=== PATIENT | female | born 1950 | race Caucasian/White ===

== ENCOUNTER 2018-08-26 09:13 | Inpatient (IN) ==
[2018-08-26] MEDS ORDERED: Morphine Inj 4 MG/ML Vial IV.PUSH ONE (09:50)
[2018-08-26] MEDS ORDERED: niCARdipine Inj 25 MG in Sodium Chlor 0.9% Inj 240 ML IV.CONT PRN (09:57)
[2018-08-26 10:11] LABS: Baso # (Auto) 0.1 th/mm3 (0.0-0.2); Baso % (Auto) 0.9 % (0.0-2.0); Eos # (Auto) 0.1 th/mm3 (0.0-0.4); Eos % (Auto) 0.9 % (0.0-4.0); Hematocrit 43.2 % (35.0-46.0); Hemoglobin 14.7 gm/dL (11.6-15.3); Lymph # (Auto) 2.7 th/mm3 (1.0-4.8); Lymph % (Auto) 26.9 % (9.0-44.0); Mean Corpuscular HGB Conc 34.1 % (32.0-36.0); Mean Corpuscular Hemoglobin 30.1 pg (27.0-34.0); Mean Corpuscular Volume 88.4 fL (80.0-100.0); Mean Platelet Volume 10.2 fL (7.0-11.0); Mono # (Auto) 0.6 th/mm3 (0.0-0.9); Mono % (Auto) 6.1 % (0.0-8.0); Neut # (Auto) 6.6 th/mm3 (1.8-7.7); Neut % (Auto) 65.2 % (16.0-70.0); Platelet Count 204 th/mm3 (150-450); Red Blood Count 4.89 mil/mm3 (4.00-5.30); Red Cell Distribution Width 14.3 % (11.6-17.2); White Blood Count 10.2 th/mm3 (4.0-11.0)
--- NOTE | 2018-08-26 10:17 | CT ---
EXAM DATE: 08/26/2018 9:53 AM EDT AGE/SEX: 68 years / Female INDICATIONS: Stroke alert, Right sided visual changes. CLINICAL DATA: This is the patient's initial encounter. Patient reports that signs and symptoms have been present for 1 day and indicates a pain score of Nonresponsive. MEDICAL/SURGICAL HISTORY: Non-responsive. Non-responsive. RADIATION DOSE: 29.39 CTDI (mGy) COMPARISON: [facility] [place], CT BRAIN W/O CONTRAST, 08/12/2016. . TECHNIQUE: CT of the head without contrast. Using automated exposure control and adjustment of the mA and/or kV according to patient size, radiation dose was kept as low as reasonably achievable to ob tain optimal diagnostic quality images. DICOM format image data is available electronically for revi ew and comparison. FINDINGS: Cerebrum: Moderate diffuse cerebral atrophy. The ventricles are normal for degree of atrophy. No derik dence of midline shift, mass lesion, hemorrhage or acute infarction. No extraaxial fluid collections are seen. Posterior Fossa: The cerebellum and brainstem are intact. The 4th ventricle is midline. The cerebe llopontine angle is unremarkable. Extracranial: The visualized portion of the orbits is intact. Skull: The calvaria is intact. No evidence of skull fracture. CONCLUSION: 1. No acute intracranial abnormality. Findings were reviewed by Dr. Humphreys with Dr. Wayne at 10:10. Electronically signed by: Maurizio Penaloza MD 08/26/2018 10:15 AM EDT
[2018-08-26 10:37] LABS: Alkaline Phosphatase 94 U/L (45-117); Total Protein 8.7 g/dL (6.4-8.2)
[2018-08-26] MEDS: Sod Chloride 0.9% Inj 1,000 ML IV.CONT SCH ×4 (10:39→23:37)
--- NOTE | 2018-08-26 10:40 | CT ---
EXAM DATE: 08/26/2018 10:03 AM EDT AGE/SEX: 68 years / Female INDICATIONS: Stroke alert, right side visual changes. CLINICAL DATA: This is the patient's initial encounter. Patient reports that signs and symptoms have been present for 1 day and indicates a pain score of Nonresponsive. MEDICAL/SURGICAL HISTORY: Non-responsive. Non-responsive. RADIATION DOSE: 25.76 CTDI (mGy) ; Combined studies COMPARISON: [facility] [place], CT HEAD W/O CONTRAST, 08/26/2018. . TECHNIQUE: Volumetric scanning was performed using a multi-row detector CT scanner during bolus infu roxana of 99 ml Visipaque 320 (iodixanol) nonionic water-soluble contrast as a cumulative dose for mul tiple exams. The data was post processed with a variety of visualization algorithms including full volume maximum intensity projection, multi-planar sliding thin slab reformation, curved planar reform ation, and surface rendering techniques. Using automated exposure control and adjustment of the mA a nd/or kV according to patient size, radiation dose was kept as low as reasonably achievable to obtain optimal diagnostic quality images. DICOM format image data is available electronically for review a nd comparison. FINDINGS: There is excellent visualization of the major intracranial arteries out to the second-order branch ve ssels. There is no evidence for aneurysm, vessel truncation or stenosis, and no evidence for vascula r malformation. Anterior communicating artery is patent. Middle and anterior cerebral arteries are pa tent. Dominant left vertebral artery. Right vertebral artery ends in PICA. Basilar artery patent. Pos terior cerebral arteries are unremarkable without significant stenosis. Posterior communicating arter ies. CONCLUSION: 1. No large vessel stenosis, thrombosis or aneurysm. 2. Normal variants as above. Electronically signed by: Gregg Rajan MD 08/26/2018 10:39 AM EDT
[2018-08-26 10:42] LABS: Alanine Aminotransferase 18 U/L (10-53); Albumin 4.6 g/dL (3.4-5.0); Anion Gap 14 meq/L (5-15); Aspartate Aminotransferase 19 U/L (15-37); Blood Urea Nitrogen 15 mg/dL (7-18); Calcium 9.1 mg/dL (8.5-10.1); Carbon Dioxide 22.8 meq/L (21.0-32.0); Chloride 106 meq/L (98-107); Glomerular Filtration Rate 66 mL/min (>89); Glucose,Random 91 mg/dL (74-106); Potassium 3.8 meq/L (3.5-5.1); Sodium 143 meq/L (136-145)
--- NOTE | 2018-08-26 10:58 | ED ---
HPI General Chief Complaint: Headache Stated Complaint: Pain Time Seen by Provider: 08/26/18 09:57 Source: patient Mode of arrival: ambulatory Limitations: no limitations History of Present Illness HPI Narrative: The patient 68 years old and arrives with temporal cephalgia. It is on the right side. She woke up with it approximately 6-1/2 hours prior to ER arrival. No jaw claudication or new rash. Pt denies that at that time she had facial asymmetry or weakness. No extremity weakness was noted upon waking. Pt reports one simlar prior episode several months prior ultimately diagnosed as TIA. No fever. Patient also reports her blood pressures typically in the 90s systolic. Blood pressure today approximately 200/100 at home and shortly after arrival to the ER. Patient also complains of right-sided chest pain with radiation to the right shoulder. She reports having undergone evaluation for chest pain in [place] earlier this year which revealed no coronary disease. Related Data Home Medications Medication Instructions Recorded Confirmed Xanax 5 mg PO BID PRN 08/26/18 08/26/18 aspirin [Aspirin Low Dose] 81 mg PO DAILY 08/26/18 08/26/18 gabapentin 400 mg PO BID 08/26/18 08/26/18 hydrocodone-acetaminophen [[place]] 1 tab PO Q4-6H PRN 08/26/18 08/26/18 omeprazole 40 mg PO DAILY 08/26/18 08/26/18 Allergies Allergy/AdvReac Type Severity Reaction Status Date / Time penicillin G Allergy Unknown UNKNOWN Verified 08/26/18 09:29 Review of Systems ROS: all other systems reviewed are negative [facility] Family History Family History Mother Family history of colon cancer Social History Social History Substance History: No History of Abuse Second Hand Smoke Exposure: No Smoking Status: Never smoker How Often Do You Have a Drink Containing Alcohol: Monthly or less Recent Travel in [facility] within the Last 8 Weeks: No Recent Out of Country Travel within the Last 8 Weeks: No Immunization History Tetanus Immunization: >5 Years Exam Narrative Exam Narrative: GENERAL: 68year-old female pleasant well-nourished well- developed no acute distress SKIN: Focused skin assessment warm/dry. HEAD: Atraumatic. Normocephalic. EYES: Pupils equal and round. No scleral icterus. No injection or drainage. ENT: No nasal bleeding or discharge. Mucous membranes pink and moist. NECK: Trachea midline. No JVD. CARDIOVASCULAR: Regular rate and rhythm. No murmur appreciated. RESPIRATORY: No accessory muscle use. Clear to auscultation. Breath sounds equal bilaterally. GASTROINTESTINAL: Abdomen soft, non-tender, nondistended. Hepatic and splenic margins not palpable. MUSCULOSKELETAL: No obvious deformities. No clubbing. No cyanosis. No edema. NEUROLOGICAL: There is right-sided facial droop. Forehead exam normal. There is a slight pronator drift on the right side. Hip flexion is slightly decreased on the right side. Sensation slightly decreased on the right face compared to the left. Speech is normal. There is no neglect. Memory mentation normal. There is no focal tenderness overlying the temporal artery. PSYCHIATRIC: Appropriate mood and affect; insight and judgment normal. Course Initial Documented Vital Signs Temperature 97.9 F 08/26/18 09:16 Pulse Rate 87 08/26/18 09:16 Respiratory Rate 17 08/26/18 09:16 Blood Pressure 226/100 H 08/26/18 09:16 Pulse Oximetry 100 08/26/18 09:16 Last Documented Vital Signs Temperature 97.9 F 08/27/18 12:00 Pulse Rate 76 08/27/18 12:00 Respiratory Rate 19 08/27/18 12:00 Blood Pressure 131/74 08/27/18 12:00 Pulse Oximetry 94 L 08/27/18 12:00 Critical Care Time Critical Care Time: Yes Total Critical Care Time: 45 Attestation: Aggregate critical care time was 45 minutes. Time to perform other separately billable procedures was not included in the critical care time. My time did not include minutes spent treating any other patients simultaneously or on activities that did not directly contribute to the patient's treatment. The services I provided to this patient were to treat and/or prevent clinically significant deterioration that could result in: Permanent disability, intracranial hemorrhage I provided critical care services requiring my management, as noted below: Chart data review, documentation time, medication orders and management, vital sign assessments/reviewing monitor data, ordering and reviewing lab tests, ordering and interpreting/reviewing x-rays and diagnostic studies, care of the patient and discussion of the patient with the admitting physicians. Medical Decision Making MDM Narrative Medical decision making narrative: At the time of my exam there is right-sided facial droop as well as weakness in the right arm and leg. This was concerning for acute stroke. Stroke alert was therefore activated. Case discussed with neurology, Dr. Wayne, who advised against TPA. Additional recommendations include workup including MR imaging CTA, aspirin, permissive hypertension and Tylenol for cephalgia. TPA not indicated given duration of symptoms. Case discussed with Dr. Sin for the hospitalist service. Patient has a urinary tract infection, and unexpected finding. Medical Screen Exam Complete: Yes Emergency Medical Condition: Yes Lab Data Lab results reviewed: Yes I reviewed the patient's lab results. Result diagrams: 08/27/18 03:58 08/27/18 03:58 Lab Results 08/26/18 08/26/18 08/26/18 Range/Units 09:54 09:54 09:54 WBC 10.2 (4.0-11.0) th/mm3 RBC 4.89 (4.00-5.30) mil/mm3 Hgb 14.7 (11.6-15.3) gm/dL POC Hgb (Calc) (11.6-15.3) g/dL Hct 43.2 (35.0-46.0) % POC Hct (35-46.0) % MCV 88.4 (80.0-100.0) fL MCH 30.1 (27.0-34.0) pg MCHC 34.1 (32.0-36.0) % RDW 14.3 (11.6-17.2) % Plt Count 204 (150-450) th/mm3 MPV 10.2 (7.0-11.0) fL Neut % (Auto) 65.2 (16.0-70.0) % Lymph % (Auto) 26.9 (9.0-44.0) % Harmon % (Auto) 6.1 (0.0-8.0) % Eos % (Auto) 0.9 (0.0-4.0) % Baso % (Auto) 0.9 (0.0-2.0) % Neut # (Auto) 6.6 (1.8-7.7) th/mm3 Lymph # (Auto) 2.7 (1.0-4.8) th/mm3 Harmon # (Auto) 0.6 (0.0-0.9) th/mm3 Eos # (Auto) 0.1 (0.0-0.4) th/mm3 Baso # (Auto) 0.1 (0.0-0.2) th/mm3 WBC Differential . Differential Comment Auto diff final ESR 12 (0-30) mm/hr PT (9.8-11.6) sec INR Ratio APTT (24.3-30.1) sec Fibrinogen (227-377) mg/dL POC Sodium (137-144) mmol/L Sodium 143 (136-145) meq/L POC Potassium (3.6-5.0) mmol/L Potassium 3.8 (3.5-5.1) meq/L POC Chloride (102-111) mmol/L Chloride 106 (98-107) meq/L Carbon Dioxide 22.8 (21.0-32.0) meq/L Anion Gap 14 (5-15) meq/L POC BUN (5-21) mg/dL BUN 15 (7-18) mg/dL Creatinine 0.85 (0.50-1.00) mg/dL POC Creatinine (0.6-1.3) mg/dL Estimated GFR 66 L (>89) mL/min POC Glucose (68-110) mg/dL Random Glucose 91 (74-106) mg/dL Calcium 9.1 (8.5-10.1) mg/dL Total Bilirubin 0.9 (0.2-1.0) mg/dL Direct Bilirubin (0.0-0.2) mg/dL Indirect Bilirubin (0.0-0.8) mg/dL AST 19 (15-37) U/L ALT 18 (10-53) U/L Alkaline Phosphatase 94 (45-117) U/L Total Creatine Kinase (26-192) U/L Troponin I Less than 0.02 L (0.02-0.05) ng/mL C-Reactive Protein Less than 0.29 (0.00-0.30) mg/dL Total Protein 8.7 H (6.4-8.2) g/dL Albumin 4.6 (3.4-5.0) g/dL Triglycerides (42-150) mg/dL Cholesterol (120-200) mg/dL LDL Cholesterol, Calc (0-99) mg/dL HDL Cholesterol (40.0-60.0) mg/dL Cholesterol/HDL Ratio Ratio Vitamin B12 (193-986) pg/mL TSH (0.358-3.740) uIU/mL Free T4 (0.76-1.46) ng/dL Urine Color (Yellw/Straw) Urine Clarity (Clear) Urine pH (5.0-8.5) Ur Specific [place] (1.002-1.035) Urine Protein (Neg-Trace) mg/dL Urine Glucose (UA) (Negative) mg/dL Urine Ketones (Negative) mg/dL Urine Occult Blood (Negative) Urine Nitrate (Negative) Urine Bilirubin (Negative) Urine Urobilinogen (Less than 2) mg/dL Ur Leukocyte Esterase (Negative) Urine RBC (0-3) /hpf Urine WBC (0-5) /hpf Ur Squamous Epith Cells (0-5) /hpf Urine Bacteria (None) /hpf Micro UA Comment Ur Microscopic Review Urine Culture Comments Urine Opiates Screen (Neg) Ur Barbiturates Screen (Neg) Ur Amphetamines Screen (Neg) U Benzodiazepines Scrn (Neg) Urine Cocaine Screen (Neg) U Cannabinoids Screen (Neg) MO Screen (Neg) RPR (Nonreactive) Blood Type Blood Type Recheck Antibody Screen 08/26/18 08/26/18 08/26/18 Range/Units 09:54 10:25 10:25 WBC (4.0-11.0) th/mm3 RBC (4.00-5.30) mil/mm3 Hgb (11.6-15.3) gm/dL POC Hgb (Calc) 15.3 (11.6-15.3) g/dL Hct (35.0-46.0) % POC Hct 45.0 (35-46.0) % MCV (80.0-100.0) fL MCH (27.0-34.0) pg MCHC (32.0-36.0) % RDW (11.6-17.2) % Plt Count (150-450) th/mm3 MPV (7.0-11.0) fL Neut % (Auto) (16.0-70.0) % Lymph % (Auto) (9.0-44.0) % Harmon % (Auto) (0.0-8.0) % Eos % (Auto) (0.0-4.0) % Baso % (Auto) (0.0-2.0) % Neut # (Auto) (1.8-7.7) th/mm3 Lymph # (Auto) (1.0-4.8) th/mm3 Harmon # (Auto) (0.0-0.9) th/mm3 Eos # (Auto) (0.0-0.4) th/mm3 Baso # (Auto) (0.0-0.2) th/mm3 WBC Differential Differential Comment ESR (0-30) mm/hr PT 9.8 (9.8-11.6) sec INR 1.0 Ratio APTT 30.8 H (24.3-30.1) sec Fibrinogen 368 (227-377) mg/dL POC Sodium 142 (137-144) mmol/L Sodium (136-145) meq/L POC Potassium 3.8 (3.6-5.0) mmol/L Potassium (3.5-5.1) meq/L POC Chloride 106 (102-111) mmol/L Chloride (98-107) meq/L Carbon Dioxide (21.0-32.0) meq/L Anion Gap (5-15) meq/L POC BUN 17 (5-21) mg/dL BUN (7-18) mg/dL Creatinine (0.50-1.00) mg/dL POC Creatinine 0.7 (0.6-1.3) mg/dL Estimated GFR (>89) mL/min POC Glucose 93 (68-110) mg/dL Random Glucose (74-106) mg/dL Calcium (8.5-10.1) mg/dL Total Bilirubin (0.2-1.0) mg/dL Direct Bilirubin (0.0-0.2) mg/dL Indirect Bilirubin (0.0-0.8) mg/dL AST (15-37) U/L ALT (10-53) U/L Alkaline Phosphatase (45-117) U/L Total Creatine Kinase (26-192) U/L Troponin I (0.02-0.05) ng/mL C-Reactive Protein (0.00-0.30) mg/dL Total Protein (6.4-8.2) g/dL Albumin (3.4-5.0) g/dL Triglycerides (42-150) mg/dL Cholesterol (120-200) mg/dL LDL Cholesterol, Calc (0-99) mg/dL HDL Cholesterol (40.0-60.0) mg/dL Cholesterol/HDL Ratio Ratio Vitamin B12 (193-986) pg/mL TSH (0.358-3.740) uIU/mL Free T4 (0.76-1.46) ng/dL Urine Color (Yellw/Straw) Urine Clarity (Clear) Urine pH (5.0-8.5) Ur Specific [place] (1.002-1.035) Urine Protein (Neg-Trace) mg/dL Urine Glucose (UA) (Negative) mg/dL Urine Ketones (Negative) mg/dL Urine Occult Blood (Negative) Urine Nitrate (Negative) Urine Bilirubin (Negative) Urine Urobilinogen (Less than 2) mg/dL Ur Leukocyte Esterase (Negative) Urine RBC (0-3) /hpf Urine WBC (0-5) /hpf Ur Squamous Epith Cells (0-5) /hpf Urine Bacteria (None) /hpf Micro UA Comment Ur Microscopic Review Urine Culture Comments Urine Opiates Screen (Neg) Ur Barbiturates Screen (Neg) Ur Amphetamines Screen (Neg) U Benzodiazepines Scrn (Neg) Urine Cocaine Screen (Neg) U Cannabinoids Screen (Neg) MO Screen (Neg) RPR (Nonreactive) Blood Type B Negative Blood Type Recheck Required Antibody Screen Negative 08/26/18 08/26/18 08/26/18 Range/Units 10:34 10:34 19:08 WBC (4.0-11.0) th/mm3 RBC (4.00-5.30) mil/mm3 Hgb (11.6-15.3) gm/dL POC Hgb (Calc) (11.6-15.3) g/dL Hct (35.0-46.0) % POC Hct (35-46.0) % MCV (80.0-100.0) fL MCH (27.0-34.0) pg MCHC (32.0-36.0) % RDW (11.6-17.2) % Plt Count (150-450) th/mm3 MPV (7.0-11.0) fL Neut % (Auto) (16.0-70.0) % Lymph % (Auto) (9.0-44.0) % Harmon % (Auto) (0.0-8.0) % Eos % (Auto) (0.0-4.0) % Baso % (Auto) (0.0-2.0) % Neut # (Auto) (1.8-7.7) th/mm3 Lymph # (Auto) (1.0-4.8) th/mm3 Harmon # (Auto) (0.0-0.9) th/mm3 Eos # (Auto) (0.0-0.4) th/mm3 Baso # (Auto) (0.0-0.2) th/mm3 WBC Differential Differential Comment ESR (0-30) mm/hr PT (9.8-11.6) sec INR Ratio APTT (24.3-30.1) sec Fibrinogen (227-377) mg/dL POC Sodium (137-144) mmol/L Sodium (136-145) meq/L POC Potassium (3.6-5.0) mmol/L Potassium (3.5-5.1) meq/L POC Chloride (102-111) mmol/L Chloride (98-107) meq/L Carbon Dioxide (21.0-32.0) meq/L Anion Gap (5-15) meq/L POC BUN (5-21) mg/dL BUN (7-18) mg/dL Creatinine (0.50-1.00) mg/dL POC Creatinine (0.6-1.3) mg/dL Estimated GFR (>89) mL/min POC Glucose (68-110) mg/dL Random Glucose (74-106) mg/dL Calcium (8.5-10.1) mg/dL Total Bilirubin (0.2-1.0) mg/dL Direct Bilirubin (0.0-0.2) mg/dL Indirect Bilirubin (0.0-0.8) mg/dL AST (15-37) U/L ALT (10-53) U/L Alkaline Phosphatase (45-117) U/L Total Creatine Kinase (26-192) U/L Troponin I (0.02-0.05) ng/mL C-Reactive Protein (0.00-0.30) mg/dL Total Protein (6.4-8.2) g/dL Albumin (3.4-5.0) g/dL Triglycerides (42-150) mg/dL Cholesterol (120-200) mg/dL LDL Cholesterol, Calc (0-99) mg/dL HDL Cholesterol (40.0-60.0) mg/dL Cholesterol/HDL Ratio Ratio Vitamin B12 537 (193-986) pg/mL TSH 2.480 (0.358-3.740) uIU/mL Free T4 0.74 L (0.76-1.46) ng/dL Urine Color Straw (Yellw/Straw) Urine Clarity Clear (Clear) Urine pH 5.0 (5.0-8.5) Ur Specific [place] 1.015 (1.002-1.035) Urine Protein Negative (Neg-Trace) mg/dL Urine Glucose (UA) Negative (Negative) mg/dL Urine Ketones Negative (Negative) mg/dL Urine Occult Blood Negative (Negative) Urine Nitrate Positive H (Negative) Urine Bilirubin Negative (Negative) Urine Urobilinogen Less than 2 (Less than 2) mg/dL Ur Leukocyte Esterase Large H (Negative) Urine RBC Less than 1 (0-3) /hpf Urine WBC 15 H (0-5) /hpf Ur Squamous Epith Cells <1 (0-5) /hpf Urine Bacteria Many H (None) /hpf Micro UA Comment Culture indicated Ur Microscopic Review Not Reportable Urine Culture Comments Culture indicated Urine Opiates Screen Neg (Neg) Ur Barbiturates Screen Neg (Neg) Ur Amphetamines Screen Neg (Neg) U Benzodiazepines Scrn Pos H (Neg) Urine Cocaine Screen Neg (Neg) U Cannabinoids Screen Neg (Neg) MO Screen (Neg) RPR (Nonreactive) Blood Type Blood Type Recheck Antibody Screen 08/26/18 08/26/18 08/27/18 Range/Units 19:08 19:08 03:58 WBC (4.0-11.0) th/mm3 RBC (4.00-5.30) mil/mm3 Hgb (11.6-15.3) gm/dL POC Hgb (Calc) (11.6-15.3) g/dL Hct (35.0-46.0) % POC Hct (35-46.0) % MCV (80.0-100.0) fL MCH (27.0-34.0) pg MCHC (32.0-36.0) % RDW (11.6-17.2) % Plt Count (150-450) th/mm3 MPV (7.0-11.0) fL Neut % (Auto) (16.0-70.0) % Lymph % (Auto) (9.0-44.0) % Harmon % (Auto) (0.0-8.0) % Eos % (Auto) (0.0-4.0) % Baso % (Auto) (0.0-2.0) % Neut # (Auto) (1.8-7.7) th/mm3 Lymph # (Auto) (1.0-4.8) th/mm3 Harmon # (Auto) (0.0-0.9) th/mm3 Eos # (Auto) (0.0-0.4) th/mm3 Baso # (Auto) (0.0-0.2) th/mm3 WBC Differential Differential Comment ESR (0-30) mm/hr PT (9.8-11.6) sec INR Ratio APTT (24.3-30.1) sec Fibrinogen (227-377) mg/dL POC Sodium (137-144) mmol/L Sodium 146 H (136-145) meq/L POC Potassium (3.6-5.0) mmol/L Potassium 3.8 (3.5-5.1) meq/L POC Chloride (102-111) mmol/L Chloride 110 H (98-107) meq/L Carbon Dioxide 23.5 (21.0-32.0) meq/L Anion Gap 13 (5-15) meq/L POC BUN (5-21) mg/dL BUN 13 (7-18) mg/dL Creatinine 0.62 (0.50-1.00) mg/dL POC Creatinine (0.6-1.3) mg/dL Estimated GFR Greater than 89 (>89) mL/min POC Glucose (68-110) mg/dL Random Glucose 89 (74-106) mg/dL Calcium 8.4 L (8.5-10.1) mg/dL Total Bilirubin 1.3 H (0.2-1.0) mg/dL Direct Bilirubin 0.2 (0.0-0.2) mg/dL Indirect Bilirubin 1.1 H (0.0-0.8) mg/dL AST 14 L (15-37) U/L ALT 14 (10-53) U/L Alkaline Phosphatase 72 (45-117) U/L Total Creatine Kinase 64 107 (26-192) U/L Troponin I Less than 0.02 L (0.02-0.05) ng/mL C-Reactive Protein (0.00-0.30) mg/dL Total Protein 6.7 D (6.4-8.2) g/dL Albumin 3.6 D (3.4-5.0) g/dL Triglycerides 151 H (42-150) mg/dL Cholesterol 276 H (120-200) mg/dL LDL Cholesterol, Calc 203 H (0-99) mg/dL HDL Cholesterol 43.2 (40.0-60.0) mg/dL Cholesterol/HDL Ratio 6.38 Ratio Vitamin B12 (193-986) pg/mL TSH (0.358-3.740) uIU/mL Free T4 (0.76-1.46) ng/dL Urine Color (Yellw/Straw) Urine Clarity (Clear) Urine pH (5.0-8.5) Ur Specific [place] (1.002-1.035) Urine Protein (Neg-Trace) mg/dL Urine Glucose (UA) (Negative) mg/dL Urine Ketones (Negative) mg/dL Urine Occult Blood (Negative) Urine Nitrate (Negative) Urine Bilirubin (Negative) Urine Urobilinogen (Less than 2) mg/dL Ur Leukocyte Esterase (Negative) Urine RBC (0-3) /hpf Urine WBC (0-5) /hpf Ur Squamous Epith Cells (0-5) /hpf Urine Bacteria (None) /hpf Micro UA Comment Ur Microscopic Review Urine Culture Comments Urine Opiates Screen (Neg) Ur Barbiturates Screen (Neg) Ur Amphetamines Screen (Neg) U Benzodiazepines Scrn (Neg) Urine Cocaine Screen (Neg) U Cannabinoids Screen (Neg) MO Screen Neg (Neg) RPR Nonreactive (Nonreactive) Blood Type Blood Type Recheck Antibody Screen 08/27/18 Range/Units 03:58 WBC 8.1 (4.0-11.0) th/mm3 RBC 4.11 (4.00-5.30) mil/mm3 Hgb 12.5 D (11.6-15.3) gm/dL POC Hgb (Calc) (11.6-15.3) g/dL Hct 36.4 (35.0-46.0) % POC Hct (35-46.0) % MCV 88.5 (80.0-100.0) fL MCH 30.3 (27.0-34.0) pg MCHC 34.2 (32.0-36.0) % RDW 14.1 (11.6-17.2) % Plt Count 172 (150-450) th/mm3 MPV 10.3 (7.0-11.0) fL Neut % (Auto) 43.6 (16.0-70.0) % Lymph % (Auto) 45.2 H (9.0-44.0) % Harmon % (Auto) 8.8 H (0.0-8.0) % Eos % (Auto) 1.5 (0.0-4.0) % Baso % (Auto) 0.9 (0.0-2.0) % Neut # (Auto) 3.5 (1.8-7.7) th/mm3 Lymph # (Auto) 3.7 (1.0-4.8) th/mm3 Harmon # (Auto) 0.7 (0.0-0.9) th/mm3 Eos # (Auto) 0.1 (0.0-0.4) th/mm3 Baso # (Auto) 0.1 (0.0-0.2) th/mm3 WBC Differential . Differential Comment Auto diff final ESR (0-30) mm/hr PT (9.8-11.6) sec INR Ratio APTT (24.3-30.1) sec Fibrinogen (227-377) mg/dL POC Sodium (137-144) mmol/L Sodium (136-145) meq/L POC Potassium (3.6-5.0) mmol/L Potassium (3.5-5.1) meq/L POC Chloride (102-111) mmol/L Chloride (98-107) meq/L Carbon Dioxide (21.0-32.0) meq/L Anion Gap (5-15) meq/L POC BUN (5-21) mg/dL BUN (7-18) mg/dL Creatinine (0.50-1.00) mg/dL POC Creatinine (0.6-1.3) mg/dL Estimated GFR (>89) mL/min POC Glucose (68-110) mg/dL Random Glucose (74-106) mg/dL Calcium (8.5-10.1) mg/dL Total Bilirubin (0.2-1.0) mg/dL Direct Bilirubin (0.0-0.2) mg/dL Indirect Bilirubin (0.0-0.8) mg/dL AST (15-37) U/L ALT (10-53) U/L Alkaline Phosphatase (45-117) U/L Total Creatine Kinase (26-192) U/L Troponin I (0.02-0.05) ng/mL C-Reactive Protein (0.00-0.30) mg/dL Total Protein (6.4-8.2) g/dL Albumin (3.4-5.0) g/dL Triglycerides (42-150) mg/dL Cholesterol (120-200) mg/dL LDL Cholesterol, Calc (0-99) mg/dL HDL Cholesterol (40.0-60.0) mg/dL Cholesterol/HDL Ratio Ratio Vitamin B12 (193-986) pg/mL TSH (0.358-3.740) uIU/mL Free T4 (0.76-1.46) ng/dL Urine Color (Yellw/Straw) Urine Clarity (Clear) Urine pH (5.0-8.5) Ur Specific [place] (1.002-1.035) Urine Protein (Neg-Trace) mg/dL Urine Glucose (UA) (Negative) mg/dL Urine Ketones (Negative) mg/dL Urine Occult Blood (Negative) Urine Nitrate (Negative) Urine Bilirubin (Negative) Urine Urobilinogen (Less than 2) mg/dL Ur Leukocyte Esterase (Negative) Urine RBC (0-3) /hpf Urine WBC (0-5) /hpf Ur Squamous Epith Cells (0-5) /hpf Urine Bacteria (None) /hpf Micro UA Comment Ur Microscopic Review Urine Culture Comments Urine Opiates Screen (Neg) Ur Barbiturates Screen (Neg) Ur Amphetamines Screen (Neg) U Benzodiazepines Scrn (Neg) Urine Cocaine Screen (Neg) U Cannabinoids Screen (Neg) MO Screen (Neg) RPR (Nonreactive) Blood Type Blood Type Recheck Antibody Screen Imaging Data Radiologist's impression: Head CT 08/26/18 09:40 CONCLUSION: 1. No acute intracranial abnormality. Findings were reviewed by Dr. Humphreys with Dr. Wayne at 10:10. Chest X-Ray 08/26/18 10:00 CONCLUSION: No acute cardiopulmonary disease. Head CTA 08/26/18 10:00 CONCLUSION: 1. No large vessel stenosis, thrombosis or aneurysm. 2. Normal variants as above. Neck CTA 08/26/18 10:00 CONCLUSION: 1. Mixed predominantly calcified plaque extending from the right carotid bulb to the origin of the right internal carotid artery with resultant up to 40% stenosis. 2. Mixed predominantly calcified plaque extending from the distal left carotid bulb to the the proximal left internal carotid artery with resultant up to 35% tandem stenoses. 3. Dominant left vertebral artery. 4. Subcentimeter right thyroid nodule. Head MRI 08/26/18 10:33 CONCLUSION: 1. No acute intracranial abnormality. Head MRI 08/27/18 00:00 CONCLUSION: 1. Stable CT scan without new restricted diffusion or parenchymal hemorrhage. Discharge Plan Discharge Disposition Patient Disposition: 30 Still Patient Physicians Team ED Provider: Tay Aguilera Primary Care Provider: UNKNOWN, Attending Provider: Abhijit Sin Other Providers: José Miguel Wayne ; Bryan Vega ; [facility],Insurance Status ED Status: Left Department Discharge Information Discharge Date/Time: 08/26/18 12:44
--- NOTE | 2018-08-26 11:03 | CT ---
EXAM DATE: 08/26/2018 10:04 AM EDT AGE/SEX: 68 years / Female INDICATIONS: Stroke alert, right side visual changes. CLINICAL DATA: This is the patient's initial encounter. Patient reports that signs and symptoms have been present for 1 day and indicates a pain score of Nonresponsive. MEDICAL/SURGICAL HISTORY: Non-responsive. Non-responsive. RADIATION DOSE: 25.76 CTDI (mGy) ; Combined studies COMPARISON: No prior exams available for comparison. TECHNIQUE: Volumetric scanning was performed using a multirow detector CT scanner during bolus infus ion of 99 ml Visipaque 320 (iodixanol) nonionic water-soluble contrast as a cumulative dose for mult iple exams. The data was postprocessed with a variety of visualization algorithms including full-vo lume maximum intensity projection, multiplanar sliding thin-slab reformation, curved-planar reformati on, and surface-rendering techniques. Using automated exposure control and adjustment of the mA and/ or kV according to patient size, radiation dose was kept as low as reasonably achievable to obtain op timal diagnostic quality images. DICOM format image data is available electronically for review and comparison. Percent stenosis is calculated using the diameter of the stenotic region over the diameter of the nor mal distal internal carotid artery. FINDINGS: Aortic Arch: There is a three-vessel origin of the great vessels from the aorta. Mild calcified plaq ue at the origin of the arch vessels without significant flow-limiting stenosis. Right Carotid: The common carotid artery is intact. Eccentric mixed predominantly calcified plaque e xtending from the carotid bulb to the origin of the internal carotid artery with resultant up to 40% stenosis. Internal carotid artery is otherwise patent to the skull base.. The external carotid arter y is intact. Left Carotid: The common carotid artery is intact. Eccentric mixed predominantly calcified plaque ex tending from the distal carotid bulb to the deep proximal internal carotid artery with tandem stenose s measuring up to 35%. Internal carotid artery is otherwise patent to the skull base. The external ca rotid artery is intact. Vertebrals: Asymmetric vertebral arteries with a dominant left vertebral artery. Right vertebral art gilberto appears to terminate in PICA. No focal significant flow-limiting stenosis. General Findings: Lung apices are clear. Subcentimeter nodule in the right thyroid lobe No significan t adenopathy. CONCLUSION: 1. Mixed predominantly calcified plaque extending from the right carotid bulb to the origin of the r ight internal carotid artery with resultant up to 40% stenosis. 2. Mixed predominantly calcified plaque extending from the distal left carotid bulb to the the proxi mal left internal carotid artery with resultant up to 35% tandem stenoses. 3. Dominant left vertebral artery. 4. Subcentimeter right thyroid nodule. Electronically signed by: Maurizio Penaloza MD 08/26/2018 11:02 AM EDT
[2018-08-26 11:04] LABS: Activated Partial Thrombo Time 30.8 sec (24.3-30.1); Prothrombin Time 9.8 sec (9.8-11.6)
[2018-08-26 11:04] LABS: Amphetamine Screen,Urine Neg (Neg); Barbiturate Screen,Urine Neg (Neg); Cannabinoid Screen,Urine Neg (Neg); Cocaine Screen,Urine Neg (Neg); Opiate Screen,Urine Neg (Neg)
--- NOTE | 2018-08-26 11:05 | XR ---
EXAM DATE: 08/26/2018 10:00 AM EDT AGE/SEX: 68 years / Female INDICATIONS: Stroke alert. CLINICAL DATA: This is the patient's initial encounter. Patient reports that signs and symptoms have been present for 1 day and indicates a pain score of 0/10. MEDICAL/SURGICAL HISTORY: None. None. COMPARISON: [facility] – [place], CHEST SINGLE AP, 08/12/2016. . FINDINGS: A single AP view of the chest demonstrates the lungs to be symmetrically aerated without evidence of mass, infiltrate or effusion. The cardiomediastinal contours are unremarkable. Osseous structures a re intact. CONCLUSION: No acute cardiopulmonary disease. Electronically signed by: Gregg Rajan MD 08/26/2018 11:04 AM EDT
[2018-08-26 11:09] LABS: Bacteria,Urine Many /hpf; Bilirubin,Urine Negative (Negative); Clarity,Urine Clear (Clear); Color,Urine Straw (Yellw/Straw); Glucose,Urine (UA) Negative (Negative); Leukocyte Esterase,Urine Large (Negative); Nitrite,Urine Positive (Negative); Specific Gravity,Urine 1.015 (1.002-1.035); Squamous Epithelial Cell,Urine <1 /hpf (0-5)
--- NOTE | 2018-08-26 11:17 | P.HP ---
History of Present Illness Primary Care Physician: UNKNOWN Chief Complaint: Headache History of Present Illness: This is a pleasant 68 y/o Male who arrived to Emergency Room with temporal cephalalgia, on the right side as we know the patient has Anxiety Disorder, Chronic back pain, GERD, Mitral Valve prolapse, Nerve damage, TIA, on admission blood pressure 226/100 mm Hg. Hemoglobin 14.7, WBC 10.2, Platelet count 204, Ct brain no intracranial abnormality, CTA Head No large vessel stenosis, thrombosis or aneurysm, Patient seen in Emergency Room stable no complaint at this time, she states that she woke up at 3 am this morning with headache, is the first time she has the pain on right temporal area, non radiated 10/10 in intensity, as Sharp pain, associated to nausea but no vomit, she had TIA six months ago, also compliant of chest pain 8/10 in intensity on precordial area, radiated to the right shoulder, the pain is been there for the last six months she had full workup in [place] that included [facility], her blood pressure is always 90/60 mm Hg. but today was over 200 mm Hg. also complaint of blurred vision. she was found to have Right facial droop and right Hemiparesis seen by Neurology specialist considered that the patient was out of window for tPA, asked for multiple tests recommended for IV fluids, Aspirin and Plavix, she has already seen by Neurology specialist doctor Rosana found slight right facial droop, Right lower extremity with little bit of neglect, as well on the right upper arm asked for sedimentation rate, CT brain and CTA neck no major stenosis on carotid artery, NIH stroke scale 8 check MRI brain, Cardiology consult. Review of Systems All other systems reviewed negative except as stated in HPI [facility] - History History Provided By: Patient - Medical History Medical History: Medical History (Last Reviewed 08/26/18 @ 11:21 by Kathy Peña) Anxiety Chronic back pain GERD (gastroesophageal reflux disease) Mitral valve prolapse Nerve damage TIA (transient ischemic attack) - Surgical History Surgical History: Surgical History (Last Updated 08/26/18 @ 12:29 by Abhijit Sin MD) History of ankle surgery Hx laparoscopic cholecystectomy Hx of appendectomy S/P [id number]-BSO - Family History Family History: Family History (Last Updated 08/26/18 @ 12:29 by Abhijit Sin MD) Mother Family history of colon cancer - Tobacco History Smoking Status: Never smoker - Alcohol History How Often Do You Have a Drink Containing Alcohol: Never - Substance Use History Substance History: No History of Abuse - Travel History Recent Travel in the [place] Within the Last 8 Weeks: No Recent Travel Out of the Country Within the Last 8 Weeks: No - Immunization History Tetanus Immunization: >5 Years Medications and Allergies Active Medications: Active Medications Aspirin (Ecotrin) 325 mg PO DAILY [facility] Last Admin: 08/26/18 10:46 Dose: 325 mg Clopidogrel Bisulfate (Plavix) 75 mg PO DAILY [facility] Last Admin: 08/26/18 10:46 Dose: 75 mg Nicardipine HCl 25 mg/ Sodium (Chloride) 250 mls @ 50 mls/hr IV.CONT TITRATE PRN; Protocol PRN Reason: Per Protocol Sodium Chloride (Ns Inj) 1,000 mls @ 70 mls/hr IV.CONT .[id number] [facility] Last Admin: 08/26/18 10:39 Dose: 70 mls/hr Ondansetron HCl (Zofran Odt) 4 mg PO Q4H PRN PRN Reason: NAUSEA OR VOMITING Allergies Allergy/AdvReac Type Severity Reaction Status Date / Time penicillin G Allergy Unknown UNKNOWN Verified 08/26/18 09:29 Home Medications Medication Instructions Recorded Confirmed Type Xanax 08/26/18 History aspirin [Aspirin Low Dose] 81 mg PO DAILY 08/26/18 08/26/18 History gabapentin 08/26/18 History hydrocodone-acetaminophen [[place]] 1 tab PO Q4-6H PRN 08/26/18 08/26/18 History omeprazole 08/26/18 History Exam Vital signs: Vital Signs 08/26/18 09:16 08/26/18 09:26 Temperature 97.9 F Pulse Rate 87 91 H Respiratory Rate 17 18 Blood Pressure 226/100 H 181/92 H Pulse Oximetry 100 100 Intake & Output 08/25/18 08/26/18 08/26/18 18:59 06:59 18:59 Weight 72.575 kg Narrative: GENERAL: This is a well-nourished, well-developed patient, in no apparent distress. CARDIOVASCULAR: Regular rate and rhythm without murmurs, gallops, or rubs. RESPIRATORY: Clear to auscultation. Breath sounds equal bilaterally. No wheezes , rales, or rhonchi. GASTROINTESTINAL: Abdomen soft, non-tender, nondistended. Normal active bowel sounds MUSCULOSKELETAL: Extremities without clubbing, cyanosis, or edema. NEURO: slight facial droop. Results - Labs CBC & Chem 7: 08/26/18 09:54 08/26/18 09:54 Labs: Laboratory Results - last 24 hr 08/26/18 08/26/18 08/26/18 09:54 09:54 09:54 WBC 10.2 RBC 4.89 Hgb 14.7 POC Hgb (Calc) Hct 43.2 POC Hct MCV 88.4 MCH 30.1 MCHC 34.1 RDW 14.3 Plt Count 204 MPV 10.2 Neut % (Auto) 65.2 Lymph % (Auto) 26.9 [place] % (Auto) 6.1 Eos % (Auto) 0.9 Baso % (Auto) 0.9 Neut # (Auto) 6.6 Lymph # (Auto) 2.7 [place] # (Auto) 0.6 Eos # (Auto) 0.1 Baso # (Auto) 0.1 WBC Differential . Differential Comment Auto diff final ESR 12 PT INR APTT Fibrinogen POC Sodium Sodium 143 POC Potassium Potassium 3.8 POC Chloride Chloride 106 Carbon Dioxide 22.8 Anion Gap 14 POC BUN BUN 15 Creatinine 0.85 POC Creatinine Estimated GFR 66 L POC Glucose Random Glucose 91 Calcium 9.1 Total Bilirubin 0.9 AST 19 ALT 18 Alkaline Phosphatase 94 Troponin I Less than 0.02 L C-Reactive Protein Less than 0.29 Total Protein 8.7 H Albumin 4.6 Urine Opiates Screen Ur Barbiturates Screen Ur Amphetamines Screen U Benzodiazepines Scrn Urine Cocaine Screen U Cannabinoids Screen 08/26/18 08/26/18 08/26/18 09:54 10:25 10:34 WBC RBC Hgb POC Hgb (Calc) 15.3 Hct POC Hct 45.0 MCV MCH MCHC RDW Plt Count MPV Neut % (Auto) Lymph % (Auto) [place] % (Auto) Eos % (Auto) Baso % (Auto) Neut # (Auto) Lymph # (Auto) [place] # (Auto) Eos # (Auto) Baso # (Auto) WBC Differential Differential Comment ESR PT 9.8 INR 1.0 APTT 30.8 H Fibrinogen 368 POC Sodium 142 Sodium POC Potassium 3.8 Potassium POC Chloride 106 Chloride Carbon Dioxide Anion Gap POC BUN 17 BUN Creatinine POC Creatinine 0.7 Estimated GFR POC Glucose 93 Random Glucose Calcium Total Bilirubin AST ALT Alkaline Phosphatase Troponin I C-Reactive Protein Total Protein Albumin Urine Opiates Screen Neg Ur Barbiturates Screen Neg Ur Amphetamines Screen Neg U Benzodiazepines Scrn Pos H Urine Cocaine Screen Neg U Cannabinoids Screen Neg - Imaging Impressions Head CT 08/26/18 09:40 CONCLUSION: 1. No acute intracranial abnormality. Findings were reviewed by Dr. Humphreys with Dr. Wayne at 10:10. Chest X-Ray 08/26/18 10:00 CONCLUSION: No acute cardiopulmonary disease. Head CTA 08/26/18 10:00 CONCLUSION: 1. No large vessel stenosis, thrombosis or aneurysm. 2. Normal variants as above. Neck CTA 08/26/18 10:00 CONCLUSION: 1. Mixed predominantly calcified plaque extending from the right carotid bulb to the origin of the right internal carotid artery with resultant up to 40% stenosis. 2. Mixed predominantly calcified plaque extending from the distal left carotid bulb to the the proximal left internal carotid artery with resultant up to 35% tandem stenoses. 3. Dominant left vertebral artery. 4. Subcentimeter right thyroid nodule. Caprini VTE Risk Assessment Caprini VTE Risk Assessment: Moderate/High Risk (score >= 2) Caprini Risk Assessment Model: Point Value = 1 Point Value = 2 Point Value = 3 Point Value = 5 Age 41-60 Minor surgery BMI > 25 kg/m2 Swollen legs Varicose veins or History of unexplained or recurrent spontaneous Oral contraceptives or hormone replacement Sepsis (< 1 month) Serious lung disease, including pneumonia (< 1 month) Abnormal pulmonary function Acute myocardial infarction Congestive heart failure (< 1 month) History of inflammatory bowel disease Medical patient at bed rest Age 61-74 Arthroscopic surgery Major open surgery (> 45 min) Laparoscopic surgery (> 45 min) Malignancy Confined to bed (> 72 hours) Immobilizing plaster cast Central venous access Age >= 75 History of VTE Family history of VTE Factor V Leiden Prothrombin [id number] Lupus anticoagulant Anticardiolipin antibodies Elevated serum homocysteine Heparin-induced thrombocytopenia Other congenital or acquired thrombophilia Stroke (< 1 month) Elective arthroplasty Hip, pelvis, or leg fracture Acute spinal cord injury (< 1 month) Prophylaxis Regimen: Total Risk Factor Score Risk Level Prophylaxis Regimen 0-1 Low Early ambulation 2 Moderate Order ONE of the following: *Sequential Compression Device (SCD) *Heparin 5000 units SQ BID 3-4 Higher Order ONE of the following medications: *Heparin 5000 units SQ TID *Enoxaparin/Lovenox 40 mg SQ daily (WT < 150 kg, CrCl > 30 mL/min) *Enoxaparin/Lovenox 30 mg SQ daily (WT < 150 kg, CrCl > 10-29 mL/min) *Enoxaparin/Lovenox 30 mg SQ BID (WT < 150 kg, CrCl > 30 mL/min) AND/OR *Sequential Compression Device (SCD) 5 or more Highest Order ONE of the following medications: *Heparin 5000 units SQ TID (Preferred with Epidurals) *Enoxaparin/Lovenox 40 mg SQ daily (WT < 150 kg, CrCl > 30 mL/min) *Enoxaparin/Lovenox 30 mg SQ daily (WT < 150 kg, CrCl > 10-29 mL/min) *Enoxaparin/Lovenox 30 mg SQ BID (WT < 150 kg, CrCl > 30 mL/min) AND *Sequential Compression Device (SCD) Assessment and Plan - Plan 1. TIA/CVA seen by Neurology specialist considered that the patient was out of window for tPA, asked for multiple tests recommended for IV fluids, Aspirin and Plavix, she has already seen by Neurology specialist doctor Rosana found slight right facial droop, Right lower extremity with little bit of neglect, as well on the right upper arm asked for sedimentation rate, CT brain and CTA neck no major stenosis on carotid artery, NIH stroke scale 8 check MRI brain, Cardiology consult. Permissive Hypertension. 2. Anxiety disorder continue Home medicines 3. GERD continue gastric protection 4. History of TIA 5. CAD by history/Atypical chest pain continue Aspirin and Plavix, Lovenox, Telemetry, specialist field engineer to follow DVT prophylaxis with Lovenox GI prophylaxis with Famotidine. Code Status: Full Code. Discussed Condition With: Discussed with ER physician Doctor Tay Aguilera Discharge Planning: Once cleared by Specialists.
--- NOTE | 2018-08-26 11:55 | MB ---
cc: José Miguel Wayne MD DATE: 08/26/2018 HISTORY OF PRESENT ILLNESS: A 68-year-old right-handed woman with hypercholesterolemia, mitral valve prolapse, which she says is symptomatic and has chest pain and saw her train clerk up in [place], I believe, some years back. A few months ago she had a TIA where she had trouble talking, was told she had about 65% stenosis on the left, about 70% on the right. She takes a baby aspirin a day. She has a history of chest pain that goes to the right shoulder. She woke up at 3 a.m. with double vision or blurry vision, where she could not see well and has said that has continued all day today. She got up this morning, still had the blurry vision and headache and some chest pain radiating to the right arm, was sent to the ER where they noticed in the ER that she had a right facial droop and some right-sided weakness and a stroke alert was called. REVIEW OF SYSTEMS: She denies hypertension, diabetes, TN, stent, angioplasty, AFib, Coumadin, CABG, renal, hepatic or pulmonary disease, thyroid disease, lupus, ulcer, cancer, seizure. SOCIAL HISTORY: She is not a smoker or drinker, lives with her sister. FAMILY HISTORY: Positive for cancer, positive seizure in a sister. Positive for stroke in her mother. PHYSICAL EXAMINATION: VITAL SIGNS: Afebrile, 226/100 to 181/91. Sinus rhythm 18. NECK: There were no carotid bruits. HEART: Regular rhythm. I did not detect a murmur. NEUROLOGIC: The pupils are equal. Visual wu: She appears to have a visual field cut right upper quadrant. Face has a slight right facial droop. Tongue was midline. Visual wu otherwise are full. There was no nystagmus. She is now slightly numb on the right face compared to the left. She had normal strength in the right upper extremity. Right lower extremity appears to have a little bit of neglect as he does in the right upper extremity. May have a little bit of weakness there. It is hard to tell, maybe a 4+/5. Toes downgoing bilaterally. DTRs trace throughout. He has a hemisensory, decreased right face, arm, and leg. Speech is fluent. She is not aphasic. She names and repeats well. Gives a good history. LABORATORY DATA: CBC is normal. Sedimentation rate is pending. BMP is normal. Other labs are pending. CAT scan of the brain was performed that was read as normal. CTA of the neck and [place] preliminary appears to be negative. No major stenosis of the carotids were noted. She has got some carotid disease, little bit more on the right than the left. It was reviewed by Dr. Humphreys. Official report is pending. Maybe a little bit of cavernous carotid disease on preliminary, did not appear to be severe. Her symptoms appeared to start at 3 a.m. maybe before that. She is not a candidate for IV tPA as a result. She has a NIH stroke scale right now of an 8. We will check an MRI. I would keep her blood pressure up. Another possibility, which I think less likely, would be a complicated migraine, but considering her history, I think probably more likely a stroke. We will see what the MRI shows. We could switch her to Plavix and do further workup. She also has this chest pain that radiates to the right shoulder. Will do troponin and have cardiology see her. MD CATHI Rosas/dat/susanne , 10:33 AM , 10:41 AM
[2018-08-26] MEDS ORDERED: Acetaminophen 325 MG Tablet PO PRN (12:14)
[2018-08-26] MEDS ORDERED: Bisacodyl 10 MG Supp RECTAL PRN (12:14)
--- NOTE | 2018-08-26 12:34 | ECG ---
Date Performed: 08/26/2018 Time Performed: 09:50:06 PTAGE: 68 years EKG: Sinus rhythm LEFT AXIS DEVIATION LOW QRS VOLTAGE IN PRECORDIAL LEADS ABNORMAL ECG NO PREVIOUS TRACING DOCTOR: Onel Quiroga Interpretating Date/Time 08/26/2018 12:32:19
[2018-08-26] MEDS: Enoxaparin Inj 40 MG/0.4 ML Syringe SQ SCH (14:21)
--- NOTE | 2018-08-26 15:41 | MG ---
cc: Annie Harper MD EEG NUMBER: [id number] REFERRING PHYSICIAN: José Miguel Wayne MD In room 1701 awake with photic stimulation. CT negative, admitted with a right temporal headache. CURRENT MEDICATION LIST: 2. Aspirin. 3. Plavix. DESCRIPTION OF RECORD: Photic stimulation is done at the beginning portion of the recording with a driving response. The patient has overall background alpha of 9 Hz, 20-30 microvolts. Fairly symmetrical background, somewhat lower amplitude. Eye movement artifact, but overall symmetrical background. No epileptiform features. IMPRESSION: Overall, normal appearing electroencephalogram. Clinical correlation. Annie Harper MD DF/ct , 03:10 PM , 03:14 PM
--- NOTE | 2018-08-26 15:53 | MR ---
EXAM DATE: 08/26/2018 1:21 PM EDT AGE/SEX: 68 years / Female INDICATIONS: CVA. Diplopia. CLINICAL DATA: This is the patient's initial encounter. Patient reports that signs and symptoms have been present for 1 day and indicates a pain score of 5/10. MEDICAL/SURGICAL HISTORY: Transient ischemic attack. GERD Cholecystectomy. Hysterectomy. Righ t ankle sx. COMPARISON: [facility] – [place], CT HEAD W/O CONTRAST, 08/26/2018. . TECHNIQUE: Multiplanar, multisequence examination of the brain was performed without and with 7 ml Ga davist (gadobutrol) contrast as a single exam dose. FINDINGS: Cerebrum: The ventricles are normal for age. No evidence of midline shift, mass lesion, hemorrhage or acute infarction. No extraaxial fluid collections are seen. The pituitary gland and suprasellar cistern are normal in configuration. White Matter: No significant signal abnormalities are seen in the white matter. Posterior Fossa: The cerebellum and brainstem are intact. The 4th ventricle is midline. The cerebel lopontine angle is unremarkable. The cerebellar tonsils are normal in position. Diffusion Imaging: No focal areas of restricted diffusion are seen. No evidence of acute infarction . Extracranial: The visualized portions of the orbits and paranasal sinuses are unremarkable. Post Contrast: No abnormal areas of parenchymal or dural enhancement. No evidence of blood-brain ba rrier breakdown. CONCLUSION: 1. No acute intracranial abnormality. Electronically signed by: Gregg Rajan MD 08/26/2018 3:52 PM EDT
[2018-08-26] MEDS ORDERED: Gadobutrol PF 7.5 MMOL/7.5 ML Vial (for RAD) IV.SIG ONE (16:09)
[2018-08-26 20:37] LABS: Free T4 (Free Thyroxine) 0.74 ng/dL (0.76-1.46); Thyroid Stimulating Hormone 2.48 uIU/mL (0.358-3.740)
[2018-08-26 20:51] LABS: Creatine Kinase 64 U/L (26-192)
[2018-08-27 05:23] LABS: Baso # (Auto) 0.1 th/mm3 (0.0-0.2); Baso % (Auto) 0.9 % (0.0-2.0); Eos # (Auto) 0.1 th/mm3 (0.0-0.4); Eos % (Auto) 1.5 % (0.0-4.0); Hematocrit 36.4 % (35.0-46.0); Hemoglobin 12.5 gm/dL (11.6-15.3); Lymph # (Auto) 3.7 th/mm3 (1.0-4.8); Lymph % (Auto) 45.2 % (9.0-44.0); Mean Corpuscular HGB Conc 34.2 % (32.0-36.0); Mean Corpuscular Hemoglobin 30.3 pg (27.0-34.0); Mean Corpuscular Volume 88.5 fL (80.0-100.0); Mean Platelet Volume 10.3 fL (7.0-11.0); Mono # (Auto) 0.7 th/mm3 (0.0-0.9); Mono % (Auto) 8.8 % (0.0-8.0); Neut # (Auto) 3.5 th/mm3 (1.8-7.7); Neut % (Auto) 43.6 % (16.0-70.0); Platelet Count 172 th/mm3 (150-450); Red Blood Count 4.11 mil/mm3 (4.00-5.30); Red Cell Distribution Width 14.1 % (11.6-17.2); White Blood Count 8.1 th/mm3 (4.0-11.0)
[2018-08-27 05:34] LABS: Alanine Aminotransferase 14 U/L (10-53); Albumin 3.6 g/dL (3.4-5.0); Alkaline Phosphatase 72 U/L (45-117); Anion Gap 13 meq/L (5-15); Aspartate Aminotransferase 14 U/L (15-37); Blood Urea Nitrogen 13 mg/dL (7-18); Calcium 8.4 mg/dL (8.5-10.1); Carbon Dioxide 23.5 meq/L (21.0-32.0); Chloride 110 meq/L (98-107); Chol/HDL Ratio 6.38 Ratio; Cholesterol 276 mg/dL (120-200); Creatine Kinase 107 U/L (26-192); Glomerular Filtration Rate Greater Than 89 mL/min (>89); Glucose,Random 89 mg/dL (74-106); HDL Cholesterol 43.2 mg/dL (40.0-60.0); LDL Cholesterol,Calculated 203 mg/dL (0-99); Potassium 3.8 meq/L (3.5-5.1); Sodium 146 meq/L (136-145); Total Protein 6.7 g/dL (6.4-8.2); Triglycerides 151 mg/dL (42-150)
[2018-08-27] MEDS ORDERED: Dexamethasone Inj 20 MG/5 ML Vial IV.PUSH ONE (07:48)
--- NOTE | 2018-08-27 07:52 | P.PNNEU ---
Subjective Subjective Comments: sr Active Medications: Active Medications Acetaminophen (Tylenol) 650 mg PO Q4H PRN PRN Reason: Temp > 100.4 Last Admin: 08/26/18 14:21 Dose: 650 mg Hydrocodone Bitart/Acetaminophen ([place] 5/325) 1 tab PO Q4H PRN PRN Reason: pain 1 to 10 Last Admin: 08/27/18 03:41 Dose: 1 tab Al Hydroxide/Mg Hydroxide (Milk Of Magnesia Liq) 30 ml PO Q12H PRN PRN Reason: Mild Constipation Aspirin (Ecotrin) 325 mg PO DAILY [facility] Last Admin: 08/26/18 10:46 Dose: 325 mg Bisacodyl (Dulcolax Supp) 10 mg RECTAL DAILY PRN PRN Reason: SEVERE CONSITIPATION Clopidogrel Bisulfate (Plavix) 75 mg PO DAILY [facility] Last Admin: 08/26/18 10:46 Dose: 75 mg Dexamethasone Sodium Phosphate (Decadron Inj) 10 mg IV.PUSH ONCE ONE Stop: 08/27/18 07:49 Enoxaparin Sodium (Lovenox Inj) 40 mg SQ DAILY [facility] Last Admin: 08/26/18 14:21 Dose: 40 mg Nicardipine HCl 25 mg/ Sodium (Chloride) 250 mls @ 50 mls/hr IV.CONT TITRATE PRN; Protocol PRN Reason: Per Protocol Sodium Chloride (Ns Inj) 1,000 mls @ 70 mls/hr IV.CONT .[id number] [facility] Last Infusion: 08/27/18 04:45 Dose: 70 mls/hr Sodium Chloride (Ns Inj) 1,000 mls @ 100 mls/hr IV.CONT .Q10H [facility] Last Admin: 08/26/18 23:37 Dose: Not Given Lactulose (Lactulose Liq) 30 ml PO DAILY PRN PRN Reason: SEVERE CONSITIPATION Ondansetron HCl (Zofran Odt) 4 mg PO Q4H PRN PRN Reason: NAUSEA OR VOMITING Ondansetron HCl (Zofran Inj) 4 mg IV.PUSH Q4H PRN PRN Reason: NAUSEA OR VOMITING Last Admin: 08/27/18 02:09 Dose: 4 mg Sennosides (Senokot) 17.2 mg PO Q12H PRN PRN Reason: Moderate Constipation Allergies/Adverse Reactions: Allergies Allergy/AdvReac Type Severity Reaction Status Date / Time penicillin G Allergy Unknown UNKNOWN Verified 08/26/18 09:29 Physical Exam Vital signs: Vital Signs 08/26/18 09:16 08/26/18 09:26 08/26/18 11:14 Temperature 97.9 F Pulse Rate 87 91 H Respiratory Rate 17 18 Blood Pressure 226/100 H 181/92 H Pulse Oximetry 100 100 98 08/26/18 11:25 08/26/18 12:00 08/26/18 16:00 Temperature 97.9 F 98.6 F Pulse Rate 71 74 75 Respiratory Rate 22 18 18 Blood Pressure 201/84 H 167/74 H 166/72 H Pulse Oximetry 100 99 98 08/26/18 20:00 08/27/18 00:00 08/27/18 04:00 Temperature 98.2 F 97.8 F 98.4 F Pulse Rate 67 70 74 Respiratory Rate 17 18 17 Blood Pressure 185/77 H 165/71 H 166/72 H Pulse Oximetry 94 L 95 Intake & Output 08/26/18 08/27/18 08/27/18 18:59 06:59 18:59 Intake Total 1872 / 1872 Output Total 325 / 325 Balance -325 / -325 1871 / 187 Weight 72.575 kg 72.6 kg Intake: IV 1372 / 1372 NS Inj 1,000 ML @ 70 mls/hr IV. 1372 / 1372 CONT .[id number] [facility] Rx#:[id number] Oral 500 / 500 Output: Urine 325 / 325 Other: # Voids 2 3 Narrative: still some r mouth droop but moving better vff now mild r hs loss some r giveway better Objective Laboratory Results - last 24 hr 08/26/18 08/26/18 08/26/18 09:54 09:54 09:54 WBC 10.2 RBC 4.89 Hgb 14.7 POC Hgb (Calc) Hct 43.2 POC Hct MCV 88.4 MCH 30.1 MCHC 34.1 RDW 14.3 Plt Count 204 MPV 10.2 Neut % (Auto) 65.2 Lymph % (Auto) 26.9 [place] % (Auto) 6.1 Eos % (Auto) 0.9 Baso % (Auto) 0.9 Neut # (Auto) 6.6 Lymph # (Auto) 2.7 [place] # (Auto) 0.6 Eos # (Auto) 0.1 Baso # (Auto) 0.1 WBC Differential . Differential Comment Auto diff final ESR 12 PT INR APTT Fibrinogen POC Sodium Sodium 143 POC Potassium Potassium 3.8 POC Chloride Chloride 106 Carbon Dioxide 22.8 Anion Gap 14 POC BUN BUN 15 Creatinine 0.85 POC Creatinine Estimated GFR 66 L POC Glucose Random Glucose 91 Calcium 9.1 Total Bilirubin 0.9 Direct Bilirubin Indirect Bilirubin AST 19 ALT 18 Alkaline Phosphatase 94 Total Creatine Kinase Troponin I Less than 0.02 L C-Reactive Protein Less than 0.29 Total Protein 8.7 H Albumin 4.6 Triglycerides Cholesterol LDL Cholesterol, Calc HDL Cholesterol Cholesterol/HDL Ratio Vitamin B12 TSH Free T4 Urine Color Urine Clarity Urine pH Ur Specific [place] Urine Protein Urine Glucose (UA) Urine Ketones Urine Occult Blood Urine Nitrate Urine Bilirubin Urine Urobilinogen Ur Leukocyte Esterase Urine RBC Urine WBC Ur Squamous Epith Cells Urine Bacteria Micro UA Comment Ur Microscopic Review Urine Culture Comments Urine Opiates Screen Ur Barbiturates Screen Ur Amphetamines Screen U Benzodiazepines Scrn Urine Cocaine Screen U Cannabinoids Screen Blood Type Blood Type Recheck Antibody Screen 08/26/18 08/26/18 08/26/18 09:54 10:25 10:25 WBC RBC Hgb POC Hgb (Calc) 15.3 Hct POC Hct 45.0 MCV MCH MCHC RDW Plt Count MPV Neut % (Auto) Lymph % (Auto) [place] % (Auto) Eos % (Auto) Baso % (Auto) Neut # (Auto) Lymph # (Auto) [place] # (Auto) Eos # (Auto) Baso # (Auto) WBC Differential Differential Comment ESR PT 9.8 INR 1.0 APTT 30.8 H Fibrinogen 368 POC Sodium 142 Sodium POC Potassium 3.8 Potassium POC Chloride 106 Chloride Carbon Dioxide Anion Gap POC BUN 17 BUN Creatinine POC Creatinine 0.7 Estimated GFR POC Glucose 93 Random Glucose Calcium Total Bilirubin Direct Bilirubin Indirect Bilirubin AST ALT Alkaline Phosphatase Total Creatine Kinase Troponin I C-Reactive Protein Total Protein Albumin Triglycerides Cholesterol LDL Cholesterol, Calc HDL Cholesterol Cholesterol/HDL Ratio Vitamin B12 TSH Free T4 Urine Color Urine Clarity Urine pH Ur Specific [place] Urine Protein Urine Glucose (UA) Urine Ketones Urine Occult Blood Urine Nitrate Urine Bilirubin Urine Urobilinogen Ur Leukocyte Esterase Urine RBC Urine WBC Ur Squamous Epith Cells Urine Bacteria Micro UA Comment Ur Microscopic Review Urine Culture Comments Urine Opiates Screen Ur Barbiturates Screen Ur Amphetamines Screen U Benzodiazepines Scrn Urine Cocaine Screen U Cannabinoids Screen Blood Type B Negative Blood Type Recheck Required Antibody Screen Negative 08/26/18 08/26/18 08/26/18 10:34 10:34 19:08 WBC RBC Hgb POC Hgb (Calc) Hct POC Hct MCV MCH MCHC RDW Plt Count MPV Neut % (Auto) Lymph % (Auto) [place] % (Auto) Eos % (Auto) Baso % (Auto) Neut # (Auto) Lymph # (Auto) [place] # (Auto) Eos # (Auto) Baso # (Auto) WBC Differential Differential Comment ESR PT INR APTT Fibrinogen POC Sodium Sodium POC Potassium Potassium POC Chloride Chloride Carbon Dioxide Anion Gap POC BUN BUN Creatinine POC Creatinine Estimated GFR POC Glucose Random Glucose Calcium Total Bilirubin Direct Bilirubin Indirect Bilirubin AST ALT Alkaline Phosphatase Total Creatine Kinase Troponin I C-Reactive Protein Total Protein Albumin Triglycerides Cholesterol LDL Cholesterol, Calc HDL Cholesterol Cholesterol/HDL Ratio Vitamin B12 537 TSH 2.480 Free T4 0.74 L Urine Color Straw Urine Clarity Clear Urine pH 5.0 Ur Specific [place] 1.015 Urine Protein Negative Urine Glucose (UA) Negative Urine Ketones Negative Urine Occult Blood Negative Urine Nitrate Positive H Urine Bilirubin Negative Urine Urobilinogen Less than 2 Ur Leukocyte Esterase Large H Urine RBC Less than 1 Urine WBC 15 H Ur Squamous Epith Cells <1 Urine Bacteria Many H Micro UA Comment Culture indicated Ur Microscopic Review Not Reportable Urine Culture Comments Culture indicated Urine Opiates Screen Neg Ur Barbiturates Screen Neg Ur Amphetamines Screen Neg U Benzodiazepines Scrn Pos H Urine Cocaine Screen Neg U Cannabinoids Screen Neg Blood Type Blood Type Recheck Antibody Screen 08/26/18 08/27/18 08/27/18 19:08 03:58 03:58 WBC 8.1 RBC 4.11 Hgb 12.5 D POC Hgb (Calc) Hct 36.4 POC Hct MCV 88.5 MCH 30.3 MCHC 34.2 RDW 14.1 Plt Count 172 MPV 10.3 Neut % (Auto) 43.6 Lymph % (Auto) 45.2 H [place] % (Auto) 8.8 H Eos % (Auto) 1.5 Baso % (Auto) 0.9 Neut # (Auto) 3.5 Lymph # (Auto) 3.7 [place] # (Auto) 0.7 Eos # (Auto) 0.1 Baso # (Auto) 0.1 WBC Differential . Differential Comment Auto diff final ESR PT INR APTT Fibrinogen POC Sodium Sodium 146 H POC Potassium Potassium 3.8 POC Chloride Chloride 110 H Carbon Dioxide 23.5 Anion Gap 13 POC BUN BUN 13 Creatinine 0.62 POC Creatinine Estimated GFR Greater than 89 POC Glucose Random Glucose 89 Calcium 8.4 L Total Bilirubin 1.3 H Direct Bilirubin 0.2 Indirect Bilirubin 1.1 H AST 14 L ALT 14 Alkaline Phosphatase 72 Total Creatine Kinase 64 107 Troponin I Less than 0.02 L C-Reactive Protein Total Protein 6.7 D Albumin 3.6 D Triglycerides 151 H Cholesterol 276 H LDL Cholesterol, Calc 203 H HDL Cholesterol 43.2 Cholesterol/HDL Ratio 6.38 Vitamin B12 TSH Free T4 Urine Color Urine Clarity Urine pH Ur Specific [place] Urine Protein Urine Glucose (UA) Urine Ketones Urine Occult Blood Urine Nitrate Urine Bilirubin Urine Urobilinogen Ur Leukocyte Esterase Urine RBC Urine WBC Ur Squamous Epith Cells Urine Bacteria Micro UA Comment Ur Microscopic Review Urine Culture Comments Urine Opiates Screen Ur Barbiturates Screen Ur Amphetamines Screen U Benzodiazepines Scrn Urine Cocaine Screen U Cannabinoids Screen Blood Type Blood Type Recheck Antibody Screen Review/Management - Review/Management Plan: imp no cva on mri ctax2 neg ldl inc says cannot tolerate statin on plavix and i would dc her on this and dc asa in 5 days after dc if echo and repeat mri neg and ambulating well can dc later today if echo abn call me hyper pend as are other labs i will repeat mri to see if any cv aappears ow could be migraine complicated and will try decadron oob ok keep ivf on today
[2018-08-27] MEDS: Enoxaparin Inj 40 MG/0.4 ML Syringe SQ SCH (08:23)
--- NOTE | 2018-08-27 10:31 | MR ---
EXAM DATE: 08/27/2018 8:33 AM EDT AGE/SEX: 68 years / Female INDICATIONS: Right sided weakness. CLINICAL DATA: This is the patient's initial encounter. Patient reports that signs and symptoms have been present for 1 day and indicates a pain score of 3/10. MEDICAL/SURGICAL HISTORY: Cardiovascular disease. Cholecystectomy. Appendectomy. Hysterectomy . COMPARISON: No prior exams available for comparison. TECHNIQUE: Multiplanar, multisequence examination of the brain was performed without contrast. FINDINGS: Cerebrum: There is no new restricted diffusion. Ventricular size is appropriate. Minimal periventricular white matter changes are evident. There are no significant extra-axial fluid collections appreciated. Posterior Fossa: Posterior fossa remains unremarkable with midline fourth ventricle. 7th and 8th cran ial nerves appear normal. Cerebellar tonsils are in normal anatomic position. Orbits and paranasal sinuses visualized are unremarkable. CONCLUSION: 1. Stable CT scan without new restricted diffusion or parenchymal hemorrhage. Electronically signed by: Amol Mendez MD 08/27/2018 10:29 AM EDT
[2018-08-27] MEDS: Sod Chloride 0.9% Inj 1,000 ML IV.CONT SCH ×3 (10:55→20:01)
--- NOTE | 2018-08-27 10:56 | P.PN ---
Subjective Interval history: This is a pleasant 68 y/o Male who arrived to Emergency Room with temporal cephalalgia, on the right side as we know the patient has Anxiety Disorder, Chronic back pain, GERD, Mitral Valve prolapse, Nerve damage, TIA, on admission blood pressure 226/100 mm Hg. Hemoglobin 14.7, WBC 10.2, Platelet count 204, Ct brain no intracranial abnormality, CTA Head No large vessel stenosis, thrombosis or aneurysm, Patient seen in Emergency Room stable no complaint at this time, she states that she woke up at 3 am this morning with headache, is the first time she has the pain on right temporal area, non radiated 10/10 in intensity, as Sharp pain, associated to nausea but no vomit, she had TIA six months ago, also compliant of chest pain 8/10 in intensity on precordial area, radiated to the right shoulder, the pain is been there for the last six months she had full workup in [place] that included [facility], her blood pressure is always 90/60 mm Hg. but today was over 200 mm Hg. also complaint of blurred vision. she was found to have Right facial droop and right Hemiparesis seen by Neurology specialist considered that the patient was out of window for tPA, asked for multiple tests recommended for IV fluids, Aspirin and Plavix, she has already seen by Neurology specialist doctor Rosana found slight right facial droop, Right lower extremity with little bit of neglect, as well on the right upper arm asked for sedimentation rate, CT brain and CTA neck no major stenosis on carotid artery, NIH stroke scale 8 check MRI brain, Cardiology consult. 08/27: Seen by Neurology specialist, No CVA on MRI, CTA x 2 negative, was not able to tolerate Statins, recommended to continue Plavix and discontinue Aspirin in five days, Echocardiogram and repeat MRI negative if Echo and repeat MRI negative and ambulating well can Discharge later today, asked to be called if Echo abnormal, recommended to repeat MRI to see if any CV appears or if Migraine gets complicated try Decadron as per retirement specialist awaiting for TTE and will give recommendations after test is done. Physical Exam Vital signs: Vital Signs 08/26/18 11:14 08/26/18 11:25 08/26/18 12:00 Temperature 97.9 F Pulse Rate 71 74 Respiratory Rate 22 18 Blood Pressure 201/84 H 167/74 H Pulse Oximetry 98 100 99 08/26/18 16:00 08/26/18 20:00 08/27/18 00:00 Temperature 98.6 F 98.2 F 97.8 F Pulse Rate 75 67 70 Respiratory Rate 18 17 18 Blood Pressure 166/72 H 185/77 H 165/71 H Pulse Oximetry 98 94 L 08/27/18 04:00 08/27/18 08:00 Temperature 98.4 F 98.3 F Pulse Rate 74 75 Respiratory Rate 17 18 Blood Pressure 166/72 H 155/75 H Pulse Oximetry 95 95 Intake & Output 08/26/18 08/27/18 08/27/18 18:59 06:59 18:59 Intake Total 1871 Output Total 325 / 325 Balance -325 / -325 1871 Weight 72.575 kg 72.6 kg Intake: IV 1372 / 1372 NS Inj 1,000 ML @ 70 mls/hr IV. 1372 / 1372 CONT .[id number] Rx#:[id number] Oral 500 / 500 Output: Urine 325 / 325 Other: # Voids 2 3 Narrative: GENERAL: Well-developed patient, in no apparent distress. CARDIOVASCULAR: Regular rate and rhythm without murmurs, gallops, or rubs. RESPIRATORY: Clear to auscultation. Breath sounds equal bilaterally. No wheezes , rales, or rhonchi. GASTROINTESTINAL: Abdomen soft, non-tender, nondistended. Normal active bowel sounds MUSCULOSKELETAL: Extremities without clubbing, cyanosis, or edema. NEURO: Alert & Oriented x4 to person, place, time, still some right mouth droop. Results - Labs CBC & Chem 7: 08/27/18 03:58 08/27/18 03:58 Laboratory Results - last 24 hr 08/26/18 08/26/18 08/26/18 09:54 10:25 10:25 WBC RBC Hgb Hct MCV MCH MCHC RDW Plt Count MPV Neut % (Auto) Lymph % (Auto) [place] % (Auto) Eos % (Auto) Baso % (Auto) Neut # (Auto) Lymph # (Auto) [place] # (Auto) Eos # (Auto) Baso # (Auto) WBC Differential Differential Comment ESR 12 PT 9.8 INR 1.0 APTT 30.8 H Fibrinogen 368 Sodium Potassium Chloride Carbon Dioxide Anion Gap BUN Creatinine Estimated GFR Random Glucose Calcium Total Bilirubin Direct Bilirubin Indirect Bilirubin AST ALT Alkaline Phosphatase Total Creatine Kinase Troponin I Total Protein Albumin Triglycerides Cholesterol LDL Cholesterol, Calc HDL Cholesterol Cholesterol/HDL Ratio Vitamin B12 TSH Free T4 Urine Color Urine Clarity Urine pH Ur Specific [place] Urine Protein Urine Glucose (UA) Urine Ketones Urine Occult Blood Urine Nitrate Urine Bilirubin Urine Urobilinogen Ur Leukocyte Esterase Urine RBC Urine WBC Ur Squamous Epith Cells Urine Bacteria Micro UA Comment Ur Microscopic Review Urine Culture Comments Urine Opiates Screen Ur Barbiturates Screen Ur Amphetamines Screen U Benzodiazepines Scrn Urine Cocaine Screen U Cannabinoids Screen Blood Type B Negative Blood Type Recheck Required Antibody Screen Negative 08/26/18 08/26/18 08/26/18 10:34 10:34 19:08 WBC RBC Hgb Hct MCV MCH MCHC RDW Plt Count MPV Neut % (Auto) Lymph % (Auto) [place] % (Auto) Eos % (Auto) Baso % (Auto) Neut # (Auto) Lymph # (Auto) [place] # (Auto) Eos # (Auto) Baso # (Auto) WBC Differential Differential Comment ESR PT INR APTT Fibrinogen Sodium Potassium Chloride Carbon Dioxide Anion Gap BUN Creatinine Estimated GFR Random Glucose Calcium Total Bilirubin Direct Bilirubin Indirect Bilirubin AST ALT Alkaline Phosphatase Total Creatine Kinase Troponin I Total Protein Albumin Triglycerides Cholesterol LDL Cholesterol, Calc HDL Cholesterol Cholesterol/HDL Ratio Vitamin B12 537 TSH 2.480 Free T4 0.74 L Urine Color Straw Urine Clarity Clear Urine pH 5.0 Ur Specific [place] 1.015 Urine Protein Negative Urine Glucose (UA) Negative Urine Ketones Negative Urine Occult Blood Negative Urine Nitrate Positive H Urine Bilirubin Negative Urine Urobilinogen Less than 2 Ur Leukocyte Esterase Large H Urine RBC Less than 1 Urine WBC 15 H Ur Squamous Epith Cells <1 Urine Bacteria Many H Micro UA Comment Culture indicated Ur Microscopic Review Not Reportable Urine Culture Comments Culture indicated Urine Opiates Screen Neg Ur Barbiturates Screen Neg Ur Amphetamines Screen Neg U Benzodiazepines Scrn Pos H Urine Cocaine Screen Neg U Cannabinoids Screen Neg Blood Type Blood Type Recheck Antibody Screen 08/26/18 08/27/18 08/27/18 19:08 03:58 03:58 WBC 8.1 RBC 4.11 Hgb 12.5 D Hct 36.4 MCV 88.5 MCH 30.3 MCHC 34.2 RDW 14.1 Plt Count 172 MPV 10.3 Neut % (Auto) 43.6 Lymph % (Auto) 45.2 H [place] % (Auto) 8.8 H Eos % (Auto) 1.5 Baso % (Auto) 0.9 Neut # (Auto) 3.5 Lymph # (Auto) 3.7 [place] # (Auto) 0.7 Eos # (Auto) 0.1 Baso # (Auto) 0.1 WBC Differential . Differential Comment Auto diff final ESR PT INR APTT Fibrinogen Sodium 146 H Potassium 3.8 Chloride 110 H Carbon Dioxide 23.5 Anion Gap 13 BUN 13 Creatinine 0.62 Estimated GFR Greater than 89 Random Glucose 89 Calcium 8.4 L Total Bilirubin 1.3 H Direct Bilirubin 0.2 Indirect Bilirubin 1.1 H AST 14 L ALT 14 Alkaline Phosphatase 72 Total Creatine Kinase 64 107 Troponin I Less than 0.02 L Total Protein 6.7 D Albumin 3.6 D Triglycerides 151 H Cholesterol 276 H LDL Cholesterol, Calc 203 H HDL Cholesterol 43.2 Cholesterol/HDL Ratio 6.38 Vitamin B12 TSH Free T4 Urine Color Urine Clarity Urine pH Ur Specific [place] Urine Protein Urine Glucose (UA) Urine Ketones Urine Occult Blood Urine Nitrate Urine Bilirubin Urine Urobilinogen Ur Leukocyte Esterase Urine RBC Urine WBC Ur Squamous Epith Cells Urine Bacteria Micro UA Comment Ur Microscopic Review Urine Culture Comments Urine Opiates Screen Ur Barbiturates Screen Ur Amphetamines Screen U Benzodiazepines Scrn Urine Cocaine Screen U Cannabinoids Screen Blood Type Blood Type Recheck Antibody Screen - Imaging Chest X-Ray 08/26/18 10:00 CONCLUSION: No acute cardiopulmonary disease. Head CT 08/26/18 09:40 CONCLUSION: 1. No acute intracranial abnormality. Head MRI 08/26/18 10:33 CONCLUSION: 1. No acute intracranial abnormality. Head MRI 08/27/18 00:00 CONCLUSION: 1. Stable CT scan without new restricted diffusion or parenchymal hemorrhage. Head CTA 08/26/18 10:00 CONCLUSION: 1. No large vessel stenosis, thrombosis or aneurysm. 2. Normal variants as above. Neck CTA 08/26/18 10:00 CONCLUSION: 1. Mixed predominantly calcified plaque extending from the right carotid bulb to the origin of the right internal carotid artery with resultant up to 40% stenosis. 2. Mixed predominantly calcified plaque extending from the distal left carotid bulb to the the proximal left internal carotid artery with resultant up to 35% tandem stenoses. 3. Dominant left vertebral artery. 4. Subcentimeter right thyroid nodule. Assessment and Plan - Plan 1. TIA/CVA seen by Neurology specialist considered that the patient was out of window for tPA, asked for multiple tests recommended for IV fluids, Aspirin and Plavix, she has already seen by Neurology specialist doctor Rosana found slight right facial droop, Right lower extremity with little bit of neglect, as well on the right upper arm asked for sedimentation rate, CT brain and CTA neck no major stenosis on carotid artery, NIH stroke scale 8 check MRI brain, Cardiology consult. Permissive Hypertension. Until now tests negative. 08/27: Seen by Neurology specialist, No CVA on MRI , CTA x 2 negative, was not able to tolerate Statins, recommended to continue Plavix and discontinue Aspirin in five days, Echocardiogram and repeat MRI negative if Echo and repeat MRI negative and ambulating well can Discharge later today, asked to be called if Echo abnormal, recommended to repeat MRI to see if any CV appears or if Migraine gets complicated try Decadron 2. Anxiety disorder continue Home medicines 3. GERD continue gastric protection 4. History of TIA 5. CAD by history/Atypical chest pain continue Aspirin and Plavix, Lovenox, Telemetry, as per Cardiology to follow after TTE performed. DVT prophylaxis with Lovenox GI prophylaxis with Famotidine. Code Status: Full Code. Discussed Condition With: Patient and Nurse Miss Villanueva Discharge Planning: Once cleared by Specialists.
--- NOTE | 2018-08-27 13:25 | P.CONCA ---
History of Present Illness Primary Care Provider: UNKNOWN Chief Complaint: Headache History of Present Illness: Very pleasant 68 y/o female with a PMH of MV prolapse, GERD, backpain who presented to the ER with sharp pain in her head. At the time of admission she had a BP that was 226/100 mmHg. She also had facial droop and right hemiparesis. She was evaluated by Neurology and felt not to be a candidate for TPA. She was placed on ASA, Plavix. Workup still ongoing. She has had complaints of chest pain that was evaluated in [place] including an angiogram which was negative. She reports that she gets sharp pain in her precordium that can awake her from sleep. Currently, no chest pain. Pain not brought on by exertion or emotional situations. TTE pending at time of evaluation. Review of Systems All other systems reviewed negative except as stated in [facility] - History History Provided By: Patient - Medical History Medical History: Medical History (Last Reviewed 08/27/18 @ 11:09 by Alexa Lee) Anxiety Chronic back pain GERD (gastroesophageal reflux disease) Mitral valve prolapse Nerve damage TIA (transient ischemic attack) - Surgical History Surgical History: Surgical History (Last Reviewed 08/27/18 @ 11:09 by Alexa Lee) History of ankle surgery Hx laparoscopic cholecystectomy Hx of appendectomy S/P [id number] - Family History Family History: Family History (Last Updated 08/26/18 @ 12:29 by Abhijit Sin MD) Mother Family history of colon cancer - Tobacco History Second Hand Smoke Exposure: No Smoking Status: Never smoker - Alcohol History How Often Do You Have a Drink Containing Alcohol: Monthly or less - Substance Use History Substance History: No History of Abuse - Travel History Recent Travel in the [place] Within the Last 8 Weeks: No Recent Travel Out of the Country Within the Last 8 Weeks: No - Immunization History Tetanus Immunization: >5 Years Medications and Allergies Active Medications: Active Medications Acetaminophen (Tylenol) 650 mg PO Q4H PRN PRN Reason: Temp > 100.4 Last Admin: 08/26/18 14:21 Dose: 650 mg Hydrocodone Bitart/Acetaminophen (Council 5/325) 1 tab PO Q4H PRN PRN Reason: pain 3-5 Last Admin: 08/27/18 08:23 Dose: 1 tab Hydrocodone Bitart/Acetaminophen ([place] 10/325) 1 tab PO Q6H PRN PRN Reason: Pain 6-10 Last Admin: 08/27/18 12:07 Dose: 1 tab Al Hydroxide/Mg Hydroxide (Milk Of Magnesia Liq) 30 ml PO Q12H PRN PRN Reason: Mild Constipation Aspirin (Ecotrin) 325 mg PO DAILY [facility] Last Admin: 08/27/18 08:23 Dose: 325 mg Bisacodyl (Dulcolax Supp) 10 mg RECTAL DAILY PRN PRN Reason: SEVERE CONSITIPATION Clopidogrel Bisulfate (Plavix) 75 mg PO DAILY [facility] Last Admin: 08/27/18 08:23 Dose: 75 mg Enoxaparin Sodium (Lovenox Inj) 40 mg SQ DAILY [facility] Last Admin: 08/27/18 08:23 Dose: 40 mg Nicardipine HCl 25 mg/ Sodium (Chloride) 250 mls @ 50 mls/hr IV.CONT TITRATE PRN; Protocol PRN Reason: Per Protocol Sodium Chloride (Ns Inj) 1,000 mls @ 70 mls/hr IV.CONT .[id number] [facility] Last Infusion: 08/27/18 04:45 Dose: 70 mls/hr Sodium Chloride (Ns Inj) 1,000 mls @ 100 mls/hr IV.CONT .Q10H [facility] Last Admin: 08/27/18 10:55 Dose: 100 mls/hr Levofloxacin/Dextrose (Levaquin 750 Mg Premix Inj) 150 mls @ 100 mls/hr IV.SIG Q24H [facility] Last Infusion: 08/27/18 12:27 Dose: Infused Lactulose (Lactulose Liq) 30 ml PO DAILY PRN PRN Reason: SEVERE CONSITIPATION Ondansetron HCl (Zofran Odt) 4 mg PO Q4H PRN PRN Reason: NAUSEA OR VOMITING Ondansetron HCl (Zofran Inj) 4 mg IV.PUSH Q4H PRN PRN Reason: NAUSEA OR VOMITING Last Admin: 08/27/18 02:09 Dose: 4 mg Sennosides (Senokot) 17.2 mg PO Q12H PRN PRN Reason: Moderate Constipation Verapamil HCl (Isoptin) 40 mg PO BID [facility] Last Admin: 08/27/18 10:53 Dose: 40 mg Allergies Allergy/AdvReac Type Severity Reaction Status Date / Time penicillin G Allergy Unknown UNKNOWN Verified 08/26/18 09:29 Home Medications Medication Instructions Recorded Confirmed Type Xanax 5 mg PO BID PRN 08/26/18 08/26/18 History aspirin [Aspirin Low Dose] 81 mg PO DAILY 08/26/18 08/26/18 History gabapentin 400 mg PO BID 08/26/18 08/26/18 History hydrocodone-acetaminophen [Council] 1 tab PO Q4-6H PRN 08/26/18 08/26/18 History omeprazole 40 mg PO DAILY 08/26/18 08/26/18 History Exam Vital signs: Vital Signs 08/26/18 16:00 08/26/18 20:00 08/27/18 00:00 Temperature 98.6 F 98.2 F 97.8 F Pulse Rate 75 67 70 Respiratory Rate 18 17 18 Blood Pressure 166/72 H 185/77 H 165/71 H Pulse Oximetry 98 94 L 08/27/18 04:00 08/27/18 08:00 08/27/18 12:00 Temperature 98.4 F 98.3 F 97.9 F Pulse Rate 74 75 76 Respiratory Rate 17 18 19 Blood Pressure 166/72 H 155/75 H 131/74 Pulse Oximetry 95 95 94 L Intake & Output 08/26/18 08/27/18 08/27/18 18:59 06:59 18:59 Intake Total 1872 / 1872 150 / 150 Output Total 325 / 325 Balance -325 / -325 187 / 1872 150 / 150 Weight 72.575 kg 72.6 kg Intake: IV 1372 / 1372 150 / 150 NS Inj 1,000 ML @ 70 mls/hr IV. 1372 / 1372 CONT .[id number] [facility] Rx#:[id number] Levaquin 750 mg Premix Inj 150 150 / 150 ML @ 100 mls/hr IV.SIG Q24H [facility] Rx#:[id number] Oral 500 / 500 Output: Urine 325 / 325 Other: # Voids 2 3 - Constitutional no acute distress - Routine HEENT Exam Head: Present: normocephalic Eye: Present: EOMI, PERRL ENT: Present: mucous membranes moist - Routine Neck Exam Absent: JVD - Routine Chest/Breast/Axilla Exam Chest wall: Absent: tenderness - Routine Respiratory Exam Present: CTA bilaterally - Routine Cardiovascular Exam Present: RRR, S1, S2, murmur (systolic click 1/6 [place] at apex) Results 08/27/18 03:58 08/27/18 03:58 Cardiac Enzymes 08/26/18 08/26/18 08/27/18 Range/Units 09:54 19:08 03:58 AST 19 14 L (15-37) U/L Troponin I Less than 0.02 L Less than 0.02 L (0.02-0.05) ng/mL Coagulation 08/26/18 Range/Units 10:25 PT 9.8 (9.8-11.6) sec APTT 30.8 H (24.3-30.1) sec Lipids 08/27/18 Range/Units 03:58 Triglycerides 151 H (42-150) mg/dL Cholesterol 276 H (120-200) mg/dL HDL Cholesterol 43.2 (40.0-60.0) mg/dL Cholesterol/HDL Ratio 6.38 Ratio CBC 08/26/18 08/27/18 Range/Units 09:54 03:58 WBC 10.2 8.1 (4.0-11.0) th/mm3 RBC 4.89 4.11 (4.00-5.30) mil/mm3 Hgb 14.7 12.5 D (11.6-15.3) gm/dL Hct 43.2 36.4 (35.0-46.0) % Plt Count 204 172 (150-450) th/mm3 Neut # (Auto) 6.6 3.5 (1.8-7.7) th/mm3 Lymph # (Auto) 2.7 3.7 (1.0-4.8) th/mm3 [place] # (Auto) 0.6 0.7 (0.0-0.9) th/mm3 Eos # (Auto) 0.1 0.1 (0.0-0.4) th/mm3 Baso # (Auto) 0.1 0.1 (0.0-0.2) th/mm3 Comprehensive Metabolic Panel 08/26/18 08/27/18 Range/Units 09:54 03:58 Sodium 143 146 H (136-145) meq/L Potassium 3.8 3.8 (3.5-5.1) meq/L Chloride 106 110 H (98-107) meq/L Carbon Dioxide 22.8 23.5 (21.0-32.0) meq/L BUN 15 13 (7-18) mg/dL Creatinine 0.85 0.62 (0.50-1.00) mg/dL Calcium 9.1 8.4 L (8.5-10.1) mg/dL Direct Bilirubin 0.2 (0.0-0.2) mg/dL Indirect Bilirubin 1.1 H (0.0-0.8) mg/dL AST 19 14 L (15-37) U/L ALT 18 14 (10-53) U/L Alkaline Phosphatase 94 72 (45-117) U/L Total Protein 8.7 H 6.7 D (6.4-8.2) g/dL Albumin 4.6 3.6 D (3.4-5.0) g/dL Intake and Output 08/26/18 08/27/18 08/27/18 22:59 06:59 14:59 Intake Total 1872 / 1872 150 / 150 Output Total 325 / 325 Balance -325 / -325 1872 / 1872 150 / 150 Intake: IV 1372 / 1372 150 / 150 NS Inj 1,000 ML @ 70 mls/hr IV. 1372 / 1372 CONT .[id number] [facility] Rx#:[id number] Levaquin 750 mg Premix Inj 150 150 / 150 ML @ 100 mls/hr IV.SIG Q24H [facility] Rx#:[id number] Oral 500 / 500 Output: Urine 325 / 325 Other: # Voids 2 3 Weight 72.6 kg - Imaging and Cardiology Imaging: Impressions Head CT 08/26/18 09:40 CONCLUSION: 1. No acute intracranial abnormality. Findings were reviewed by Dr. Humphreys with Dr. Wayne at 10:10. Chest X-Ray 08/26/18 10:00 CONCLUSION: No acute cardiopulmonary disease. Head CTA 08/26/18 10:00 CONCLUSION: 1. No large vessel stenosis, thrombosis or aneurysm. 2. Normal variants as above. Neck CTA 08/26/18 10:00 CONCLUSION: 1. Mixed predominantly calcified plaque extending from the right carotid bulb to the origin of the right internal carotid artery with resultant up to 40% stenosis. 2. Mixed predominantly calcified plaque extending from the distal left carotid bulb to the the proximal left internal carotid artery with resultant up to 35% tandem stenoses. 3. Dominant left vertebral artery. 4. Subcentimeter right thyroid nodule. Head MRI 08/26/18 10:33 CONCLUSION: 1. No acute intracranial abnormality. Head MRI 08/27/18 00:00 CONCLUSION: 1. Stable CT scan without new restricted diffusion or parenchymal hemorrhage. Assessment and Plan - Plan Chest pain- atypical in nature. I would start her on CCB for atypical chest pain for possible vasopasm which was already started by Neurology. Will follow up the findings from the TTE. She will follow up with as an outpatient for further workup.
[2018-08-27 14:17] LABS: Anti-Nuclear Antibody Screen Neg (Neg)
--- NOTE | 2018-08-27 16:17 | ECHRPT ---
Indication: CEREBRAL EMBOLISM CONCLUSIONS Normal left ventricular size. Wall thickness is normal. The left ventricular systolic function is low normal with an estimated ejection fraction in the rang e of 50- 55%. Mild mitral valve regurgitation. Mild mitral annular calcification. There is mild tricuspid valve regurgitation. The estimated pulmonary arterial pressure is 45.8 mmHg. BP: / HR: Rhythm: Sinus MEASUREMENTS (Male / Female) Normal Values Technical Quality:Fair 2D ECHO LV Diastolic Diameter PLAX 5.3 cm 4.2 - 5.9 / 3.9 - 5.3 cm LV Systolic Diameter PLAX 4.1 cm IVS Diastolic Thickness 0.9 cm 0.6 - 1.0 / 0.6 - 0.9 cm LVPW Diastolic Thickness 0.9 cm 0.6 - 1.0 / 0.6 - 0.9 cm LV Relative Wall Thickness 0.3 RV Internal Dim ED PLAX 2.3 cm LVOT Diameter 2.4 cm Aortic Root Diameter 2.7 cm LA Systolic Diameter LX 3.4 cm 3.0 - 4.0 / 2.7 - 3.8 cm DOPPLER LVOT Peak Velocity 123.0 cm/s LVOT Peak Gradient 6.1 mmHg LVOT Velocity Time Integral 21.2 cm Mitral E Point Velocity 88.3 cm/s Mitral A Point Velocity 129.0 cm/s Mitral E to A Ratio 0.7 LV E' Lateral Velocity 12.7 cm/s Mitral E to LV E' Lateral Ratio 7.0 LV E' Septal Velocity 4.1 cm/s Mitral E to LV E' Septal Ratio 21.6 TR Peak Velocity 299.0 cm/s TR Peak Gradient 36.0 mmHg Right Atrial Pressure 10.0 mmHg Pulmonary Artery Systolic Pressu 45.8 mmHg Right Ventricular Systolic Press 45.8 mmHg PV Peak Velocity 112.0 cm/s PV Peak Gradient 5.0 mmHg FINDINGS LEFT VENTRICLE Normal left ventricular size. Wall thickness is normal. The left ventricular systolic function is low normal with an estimated ejection fraction in the rang e of 50- 55%. RIGHT VENTRICLE Normal right ventricular size and systolic function. LEFT ATRIUM The left atrial size is normal. RIGHT ATRIUM The right atrial size is normal. ATRIAL SEPTUM No atrial level shunt is demonstrated by color flow Doppler interrogation. AORTA The aortic root and proximal ascending aorta are normal in size on limited imaging. MITRAL VALVE Mild mitral valve regurgitation. Mild mitral annular calcification. AORTIC VALVE Trileaflet aortic valve. No aortic valve stenosis or regurgitation. TRICUSPID VALVE There is mild tricuspid valve regurgitation. The estimated pulmonary arterial pressure is 45.8 mmHg. PULMONARY VALVE No pulmonary valve regurgitation or stenosis. VESSELS The inferior vena cava was not well visualized. PERICARDIUM No pericardial effusion. Dariel Aguiar MD, FACC (Electronically Signed) Final Date:27 August 2018 16:16
[2018-08-28] MEDS: Sod Chloride 0.9% Inj 1,000 ML IV.CONT SCH ×2 (04:46)
[2018-08-28 04:56] VITALS: RESP 18
[2018-08-28 08:04] VITALS: BP 164/72; PULSE 74; TEMP 98.3; O2SAT 92
[2018-08-28] MEDS: Enoxaparin Inj 40 MG/0.4 ML Syringe SQ SCH (08:32)
--- NOTE | 2018-08-28 08:48 | P.DS ---
Date of admission: 08/26/18 11:32 Primary care physician: UNKNOWN Attending physician on discharge: Stephan Hernandez Anticipated date of discharge: 08/28/18 Brief History from admission: This is a pleasant 68 y/o Male who arrived to Emergency Room with temporal cephalalgia, on the right side as we know the patient has Anxiety Disorder, Chronic back pain, GERD, Mitral Valve prolapse, Nerve damage, TIA, on admission blood pressure 226/100 mm Hg. Hemoglobin 14.7, WBC 10.2, Platelet count 204, Ct brain no intracranial abnormality, CTA Head No large vessel stenosis, thrombosis or aneurysm, Patient seen in Emergency Room stable no complaint at this time, she states that she woke up at 3 am this morning with headache, is the first time she has the pain on right temporal area, non radiated 10/10 in intensity, as Sharp pain, associated to nausea but no vomit, she had TIA six months ago, also compliant of chest pain 8/10 in intensity on precordial area, radiated to the right shoulder, the pain is been there for the last six months she had full workup in [place] that included [facility], her blood pressure is always 90/60 mm Hg. but today was over 200 mm Hg. also complaint of blurred vision. she was found to have Right facial droop and right Hemiparesis seen by Neurology specialist considered that the patient was out of window for tPA, asked for multiple tests recommended for IV fluids, Aspirin and Plavix, she has already seen by Neurology specialist doctor Rosana found slight right facial droop, Right lower extremity with little bit of neglect, as well on the right upper arm asked for sedimentation rate, CT brain and CTA neck no major stenosis on carotid artery, NIH stroke scale 8 check MRI brain, Cardiology consult. Patient update on day of discharge: Patient is currently doing well. Denies any chest pain, shortness of breath, fever or chills. She denies any dysuria or hematuria. She has chronic lower abdominal discomfort ever since she had bladder surgery. DS: Medications - Discharge Medications Prescriptions: clopidogrel [Plavix] 75 mg PO DAILY #90 tab verapamil 40 mg PO BID #60 tab DS: Summary Hospital Course: Ms. Kelly is a pleasant 68-year-old female who was admitted to the hospital due to temporal cephalgia. Neurology evaluated patient. MRI studies did not show any evidence of stroke. Neurology recommended aspirin for 5 days after discharge as well as Plavix 75 mg daily. With regards to headache, neurology recommended verapamil. Patient was evaluated by cardiology as well. Cardiology also recommended verapamil for possible vasospasm. Echocardiogram on 08/27/2018 shows normal ejection fraction. No other abnormalities. Based on neurology recommendations, MRI remained stable and 2D echo showed no significant abnormalities, patient was subsequently discharged. We recommended home with home health however patient declined home health. The day of discharge, microbiology shows urine culture growth of E. coli ESBL. However patient is not symptomatic. This is likely colonization. No need to treat this asymptomatic bacteriuria. Patient will follow up with her primary care physician. - Time Spent with Patient Total time spent providing and/or coordinating discharge services: Less than 30 minutes - Quality: Stroke Last date observed well: 08/26/18 Last time observed well: 09:45 - Quality: VTE Deep Vein Thrombosis/Pulmonary Embolism Present on Admission: No Exam Vital signs: Vital Signs 08/27/18 12:00 08/27/18 16:00 08/27/18 20:00 Temperature 97.9 F 98.6 F 98.2 F Pulse Rate 76 92 H 85 Respiratory Rate 19 18 17 Blood Pressure 131/74 149/77 H 168/75 H Pulse Oximetry 94 L 92 L 92 L 08/28/18 00:00 08/28/18 04:00 08/28/18 08:00 Temperature 98.1 F 97.3 F L 98.3 F Pulse Rate 68 76 74 Respiratory Rate 17 18 18 Blood Pressure 123/56 L 127/60 164/72 H Pulse Oximetry 93 L 94 L 92 L Intake & Output 08/27/18 08/28/18 08/28/18 18:59 06:59 18:59 Intake Total 1598 / 1598 2100 / 2100 Output Total 900 / 900 Balance 1598 / 1598 1200 / 1200 Weight 72.6 kg Intake: IV 778 / 778 1000 / 1000 NS Inj 1,000 ML @ 100 mls/hr IV 628 / 628 1000 / 1000 .CONT .Q10H [facility] Rx#:[id number] Levaquin 750 mg Premix Inj 150 150 / 150 ML @ 100 mls/hr IV.SIG Q24H [facility] Rx#:[id number] Oral 820 / 820 1100 / 1100 Output: Urine 900 / 900 Other: # Voids 6 Narrative: GENERAL: Alert, oriented x3, NAD. SKIN: Warm and dry. HEAD: Normocephalic. EYES: No scleral icterus. No injection or drainage. NECK: Supple, trachea midline. No JVD or lymphadenopathy. CARDIOVASCULAR: Regular rate and rhythm without murmurs, gallops, or rubs. RESPIRATORY: Breath sounds equal bilaterally. No accessory muscle use. GASTROINTESTINAL: Abdomen soft, non-tender, nondistended. MUSCULOSKELETAL: No cyanosis, or edema. BACK: Nontender without obvious deformity. No CVA tenderness. Results Procedures completed during hospitalization: 2D echo 08/27/2018 Normal left ventricular size. Wall thickness is normal. The left ventricular systolic function is low normal with an estimated ejection fraction in the range of 50- 55%. Mild mitral valve regurgitation. Mild mitral annular calcification. There is mild tricuspid valve regurgitation. The estimated pulmonary arterial pressure is 45.8 mmHg. Labs on day of discharge: Labs from last 24 hours 08/26/18 08/26/18 19:08 10:34 Urine Color Straw Urine Clarity Clear Urine pH 5.0 Ur Specific [place] 1.015 Urine Protein Negative Urine Glucose (UA) Negative Urine Ketones Negative Urine Occult Blood Negative Urine Nitrate Positive H Urine Bilirubin Negative Urine Urobilinogen Less than 2 Ur Leukocyte Esterase Large H Urine RBC Less than 1 Urine WBC 15 H Ur Squamous Epith Cells <1 Urine Bacteria Many H Micro UA Comment Culture indicated Urine Culture Comments Culture indicated MO Screen Neg RPR Nonreactive Preliminary micro results at discharge 08/26/18 10:34 Urine Culture - Preliminary Clean Catch Urine gram negative rods - Impressions ITS Impressions Head CT 08/26/18 09:40 CONCLUSION: 1. No acute intracranial abnormality. Findings were reviewed by Dr. Humphreys with Dr. Wayne at 10:10. Chest X-Ray 08/26/18 10:00 CONCLUSION: No acute cardiopulmonary disease. Head CTA 08/26/18 10:00 CONCLUSION: 1. No large vessel stenosis, thrombosis or aneurysm. 2. Normal variants as above. Neck CTA 08/26/18 10:00 CONCLUSION: 1. Mixed predominantly calcified plaque extending from the right carotid bulb to the origin of the right internal carotid artery with resultant up to 40% stenosis. 2. Mixed predominantly calcified plaque extending from the distal left carotid bulb to the the proximal left internal carotid artery with resultant up to 35% tandem stenoses. 3. Dominant left vertebral artery. 4. Subcentimeter right thyroid nodule. Head MRI 10/12/18 00:00 CONCLUSION: 1. Stable CT scan without new restricted diffusion or parenchymal hemorrhage. Discharge Plan - Discharge Disposition Patient Disposition: 01 Discharge Home - Discharge Condition Condition: Good - Discharge Order Discharge Orders: Discharge Order (Routine); Ordered 08/28/18 Ordered By: Stephan Hernandez - Discharge Details Discharge Comment: Patient declined home health. Discontinue Aspirin after 5 days (After 09/02/2018). - Physicians Team Primary Care Provider: UNKNOWN, Attending Provider: Stephan Hernandez Other Providers: José Miguel Wayne MD ; Bryan Vega MD ; [employer], Insurance
--- NOTE | 2018-08-28 13:37 | HM ---
Date Performed: 08/26/2018 Time Performed: 19:05:00 HOOKUP DATE: 08/26/18 07:05:00 PM Rosemary ANALYSIS START TIME: 08/26/2018 7:10:00 PM ANALYSIS END TIME: 08/27/2018 8:53:55 AM PATIENT AGE: 68 PATIENT HEIGHT PATIENT WEIGHT DRUG LIST: ROOM 1701 PATIENT DIAGNOSIS: NEURO TEST NARRATIVE: The patient's average heart rate was 75 BPM. No episodes of tachycardia wer e noted. No episodes of bradycardia were noted. No pauses exceeding 2.0 seconds were noted. 4 ventricular ectopics, which represented < 1% of the total beat count, were noted. The highest vent ricular ectopic frequency occurred from 12:00 AM to 01:00 AM Fri. During this time 1 VE(s) occurred. Ventricular ectopics were observed as 4 isolated beat(s) only. No couplets or runs were noted. 11 supraventricular ectopics, which represented < 1% of the total beat count, were noted. The highe st supraventricular ectopic frequency occurred from 11:00 PM to 12:00 AM Fri. During this time 3 SVE (s) occurred. No episodes of ST depression (defined as -1.0 mm or more) were noted in channel 1. No episodes of ST depression (defined as -1.0 mm or more) were noted in channel 2. No episodes of S T depression (defined as -1.0 mm or more) were noted in channel 3. NO DIARY WAS GIVEN TO PATIENT TEST INTERPRETATION: Patient has very benign appearing holter monitor. It was recorded for 13 ho urs and 44 minutes and had to be removed for testing. Overall, however, no significant arrhythmias pr esent with only very rare couplets of PACs and very rare PVCs. No patient diary is included as it was not given to patient. Signed by : Wilile Hoffman
[2018-08-30 13:54] LABS: Dil Russell Viper Venom Conf ( ND (NEGATIVE); Dil Russell Viper Venom Time M ND (CORRECTED); Lupus Anticoagulant PTT Screen 36 seconds (< OR = 40)
[2018-08-31 03:51] LABS: Homocysteine (Cardiovascular) 9.4 umol/L (<10.4)
[2018-08-31 07:52] LABS: Activated Protein C Resistance 4.5 ratio (> OR = 2.1)
[2018-09-01 16:49] LABS: Factor V Leiden Mutation Negative (Negative); Protein C Antigen 171 % (70-150)
== END 2018-08-28 10:20 | disposition home or self-care (01) ==
LOC: NEPE 09:13 → NEDA 11:32 → N07 12:16
PROVIDERS: ADMIT Hospitalist; ATTEND Hospitalist